=== PATIENT | male | born 1990 | race African-American/Black ===

== ENCOUNTER 2016-11-07 11:12 | Emergency (ER) | payer OTHER ==
[~2016-11-07 11:12] MED LIST: ALBU17IN2 INH; ATARAX OR; AUGM875T27 PO; CONC18TA OR; CONC54TA4 PO; LISI-542 PO; METO25TAB PO; MYLI40DR PO; No Historical Meds; OXYC-517 PO; SERO400T3 OR; TRAZ50TA OR; XANA1TAB2 OR; XANA1TAB2 PO
[2016-11-07] MEDS ORDERED: guaiFENesin SYRUP 200 MG/10 ML UDC As Ordered ONE (11:34)
[2016-11-07] MEDS ORDERED: ALBUTEROL SULFATE 2.5 MG/0.5 ML INH NEB SOLN As Ordered ONE (11:39)
--- NOTE | 2016-11-07 11:53 | REP ---
Chest x-ray: Two views. History: Cough. Congestion. . Comparison study: No comparison . Findings: The lungs are well inflated and free of infiltrate. The pleural angles are sharp. The heart size is normal. Pulmonary vasculature is not increased. No significant bony abnormality is seen. Impression: Negative chest x-ray. Signed by Ronald Cazares MD 11/07/2016 11:45 A
--- NOTE | 2016-11-07 12:35 | EDDOCDS ---
Physician Documentation [facility] Name: Fan Gilliam Age: 25 yrs Sex: Male : 1990 Arrival Date: 11/07/2016 Time: 11:12 Bed PR Private MD: No Pcp Disposition: 11/07/16 12:21 Discharged to Home/Self Care. Impression: Shortness of breath, Cough, Acute upper respiratory infection, unspecified. - Condition is Stable. - Discharge Instructions: Shortness of Breath, Upper Respiratory Infection, Adult, Cough, Adult. - Prescriptions for Prednisone 20 mg Oral Tablet - take 2 tablet by ORAL route once daily for 5 days; 10 tablet. benzonatate 200 mg Oral Capsule - take 1 capsule by ORAL route 3 times per day As needed DO NOT CHEW; 30 capsule. - Medication Reconciliation, Local Pharmacy Hours, Work Release Form - 2 day form. - Follow up: Emergency Department; When: As needed; Reason: Worsening of conditions. [facility]; When: Call to arrange an appointment; Reason: Recheck today's complaints, Continuance of care, To establish care. - Problem is new. - Symptoms have improved. Historical: - Allergies: Adderall XR (Anaphylaxis); Ativan (Anaphylaxis); Celexa (Anaphylaxis); diclofenac sodium (Anaphylaxis); Geodan (Anaphylaxis); Ibuprofen (Anaphylaxis); Risperdal (Anaphylaxis); thorazine (Anaphylaxis); - Home Meds: 1. lisinopril 5 mg Oral tab 1 tab once daily - PMHx: Bipolar disorder; Hypertension; - PSHx: Tonsillectomy; Appendectomy; mesenteric artery repair; - Social history: Smoking status: Patient uses tobacco products, current some day smoker. No barriers to communication noted, The patient speaks fluent S[place]ome[place], Speaks appropriately for age. - Family history: Not pertinent. - : The pt / caregiver states he / she is not on anticoagulants. Home medication list is obtained from the patient. - Exposure Risk Screening:: None identified. Vital Signs: 11/07 11:14 BP 113 / 84; Pulse 100; Resp 20; Temp 98.4; Pulse Ox 100% ; Weight 99.79 kg / 220 lbs; elp Height 5 ft. 10 in. (177.80 cm); Pain 10/10; 12:28 BP 110 / 76; Pulse 98; Resp 18; Temp 97.6(O); Pulse Ox 98% on R/A; Pain 0/10; ct3 11:14 Body Mass Index 31.57 (99.79 kg, 177.80 cm) elp MDM: 11:31 guaiFENesin Liquid 200 mg PO once ordered. dt4 11:32 Albuterol 2.5 mg Nebulizer once ordered. dt4 11:32 Call Respiratory ordered. dt4 11:32 Chest, 2 View (pa\E\lat) Ordered. EDMS 11:33 Call Respiratory complete. ck1 Administered Medications: 11:37 Drug: guaiFENesin 200 mg [guaifenesin 100 mg/5 mL oral liquid (10 mL)] Route: PO; kcs 11:43 Drug: Albuterol 2.5 mg [albuterol sulfate 2.5 mg/0.5 mL solution for nebulization (0.5 js11 mL)] Route: Nebulizer; Signatures: Dispatcher [employer] EDMS Davina Mckeon RN RN ck1 Tosha Ardon RN RN jo3 Pearl Wilson, PAMounaC PA-C dt4 Felisha Edge RN kcs Fan Brand js11 MTDD
--- NOTE | 2016-11-07 12:36 | EDDOCDS ---
Nurse's Notes [facility] Name: Fan Gilliam Age: 25 yrs Sex: Male : 1990 Arrival Date: 11/07/2016 Time: 11:12 Bed PR Private MD: No Pcp Diagnosis: Shortness of breath;Cough;Acute upper respiratory infection, unspecified Presentation: 11/07 11:22 Presenting complaint: Patient states: Productive cough congestion and VINSON for 2 weeks. jo3 "I think I may have pneumonia". Adult Sepsis Screening: The patient does not have new or worsening altered mentation. Patient's respiratory rate is less than 22. Systolic blood pressure is greater than 100. Patient has a qSOFA score of 0- Negative Sepsis Screen. Suicide/Homicide risk assessment- the patient denies having any suicidal and/or homicidal ideations and does not present with any other emotional, behavioral or mental health complaints. 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 Transition of care: patient was not received from another setting of care. 11:22 Acuity: ELIGIO Level 4 jo3 11:22 Method Of Arrival: Walkin/Carried/Asstd jo3 Triage Assessment: 11:23 General: Appears in no apparent distress, Behavior is appropriate for age, cooperative. jo3 HIV screening NA for this visit Offered previously. Neurological: Level of Consciousness is awake, alert, Oriented to person, place, time. Respiratory: Airway is patent Respiratory effort is even, unlabored. Historical: - Allergies: Adderall XR (Anaphylaxis); Ativan (Anaphylaxis); Celexa (Anaphylaxis); diclofenac sodium (Anaphylaxis); Geodan (Anaphylaxis); Ibuprofen (Anaphylaxis); Risperdal (Anaphylaxis); thorazine (Anaphylaxis); - Home Meds: 1. lisinopril 5 mg Oral tab 1 tab once daily - PMHx: Bipolar disorder; Hypertension; - PSHx: Tonsillectomy; Appendectomy; mesenteric artery repair; - Social history: Smoking status: Patient uses tobacco products, current some day smoker. No barriers to communication noted, The patient speaks fluent Hebrew, Speaks appropriately for age. - Family history: Not pertinent. - : The pt / caregiver states he / she is not on anticoagulants. Home medication list is obtained from the patient. - Exposure Risk Screening:: None identified. Screenin:33 Screening information is obtained from the patient. Fall risk: No risks identified. ck1 Assistance ADL's: requires no assistance with activities of daily living. Abuse/DV Screen: The patient / caregiver reports he/she is: not in a situation that causes fear, pain or injury. Nutritional screening: No deficits noted. Advance Directives: Currently, there is no health care proxy. home support is adequate. Assessment: 12:12 Reassessment: Patient states it is hard for him to breathe - no dyspnea noted - talking kcs in full sentences - no drooling, no stridor.. 12:34 General: Appears in no apparent distress, comfortable, Behavior is appropriate for age, ck1 cooperative. Pain: Denies pain. Neurological: Level of Consciousness is awake, alert, obeys commands, Oriented to person, place, time. Respiratory: Respiratory effort is unlabored, Respiratory pattern is regular, symmetrical. GI: No deficits noted. Derm: Skin is intact, is healthy with good turgor, Skin is pink, warm & dry. Musculoskeletal: Circulation, motion, and sensation intact Range of motion intact in all extremities. Vital Signs: 11:14 BP 113 / 84; Pulse 100; Resp 20; Temp 98.4; Pulse Ox 100% ; Weight 99.79 kg; Height 5 elp ft. 10 in. (177.80 cm); Pain 10/10; 12:28 BP 110 / 76; Pulse 98; Resp 18; Temp 97.6(O); Pulse Ox 98% on R/A; Pain 0/10; ct3 11:14 Body Mass Index 31.57 (99.79 kg, 177.80 cm) [facility] Vitals: 11:14 Log In Time: November 07, 2016 at 11:10. [facility] ED Course: 11:13 Patient visited by Saloni Ku PCA. elp 11:13 No Pcp is Private Physician. elp 11:13 Patient moved to Waiting elp 11:15 Patient visited by Saloni Ku PCA. elp 11:15 Patient moved to Pre RCE elp 11:23 Triage Initiated jo3 11:24 Patient visited by Tosha Ardon RN. jo3 11:24 [facility] dt4 11:24 Morena Link MD is Attending Physician. dt4 11:24 Patient visited by Pearl Wilson PA-C. dt4 11:24 Patient moved to Triage 2 jo3 11:33 Patient moved to PR2 / 26 kcs 12:03 Patient visited by Davina Mckeon RN. ck1 12:21 [facility] is Referral Physician. dt4 12:29 Patient visited by Desire Banuelos PCA. ct3 12:31 Chest, 2 View (pa\\E\\lat) Returned. EDMS 12:34 The patient / caregiver is instructed regarding the plan of care and ED course. ck1 12:34 No IV's were initiated during this patient's visit. No procedures done that require ck1 assistance. Administered Medications: 11:37 Drug: guaiFENesin 200 mg [guaifenesin 100 mg/5 mL oral liquid (10 mL)] Route: PO; kcs 11:43 Drug: Albuterol 2.5 mg [albuterol sulfate 2.5 mg/0.5 mL solution for nebulization (0.5 js11 mL)] Route: Nebulizer; RT: 11:43 Initial Med Neb Given as ordered Patient was instructed and evaluated on procedure js11 Patient tolerated procedure well without adverse effect. Oxygen is room air. Respiratory: Breath sounds are clear bilaterally. Breath sounds are diminished bilaterally. 11:53 Respiratory: Breath sounds with wheezes bilaterally. at expiration. js11 Order Results: Radiology Order: Chest, 2 View (pa\\E\\lat) Test: Chest, 2 View (pa\\E\\lat) REASON FOR EXAMINATION: Cough; Chest x-ray: Two views.; ; History: Cough. Congestion. .; ; Comparison study: No comparison .; ; Findings: The lungs are well inflated and free of infiltrate. The pleural; angles are sharp. The heart size is normal. Pulmonary vasculature is not; increased. No significant bony abnormality is seen.; ; Impression:; ; Negative chest x-ray.; ; ; Signed by; Ronald Cazares MD 11/07/2016 11:45 A; Outcome: 12:21 Discharge ordered by Provider. dt4 12:33 Discharge Assessment: Patient awake, alert and oriented x 3. No cognitive and/or ck1 functional deficits noted. Patient verbalized understanding of disposition instructions. patient administered narcotics - no. The following High Risk Discharge criteria are identified: None. Discharged to home ambulatory. Condition: stable. Discharge instructions given to patient, Instructed on discharge instructions, follow up and referral plans. medication usage, Demonstrated understanding of instructions, medications, Pt was receptive of discharge instructions/ teaching. Prescriptions given X 2. No special radiology studies were completed. Property :Personal belongings accompany Pt. 12:33 Work note provided to patient. ck1 12:34 Patient left the ED. ck1 Signatures: Dispatcher [employer] EDFelisha Wilkins RN RN Davina Badillo RN RN ck1 Tosha Ardon RN RN jo3 Desire Banuelos, AUTOMATION QA LEAD AUTOMATION QA LEAD ct3 Fan Brand js11 Saloni Ku, AUTOMATION QA LEAD AUTOMATION QA LEAD elp Pearl Wilson PA-C PA-C dt4 MTDD
--- NOTE | 2016-11-09 13:35 | EDDOCDS ---
Nurse's Notes [facility] Name: Fan Gilliam Age: 25 yrs Sex: Male : 1990 Arrival Date: 11/07/2016 Time: 11:12 Bed PR Private MD: No Pcp Diagnosis: Shortness of breath;Cough;Acute upper respiratory infection, unspecified Presentation: 11/07 11:22 Presenting complaint: Patient states: Productive cough congestion and VINSON for 2 weeks. jo3 "I think I may have pneumonia". Adult Sepsis Screening: The patient does not have new or worsening altered mentation. Patient's respiratory rate is less than 22. Systolic blood pressure is greater than 100. Patient has a qSOFA score of 0- Negative Sepsis Screen. Suicide/Homicide risk assessment- the patient denies having any suicidal and/or homicidal ideations and does not present with any other emotional, behavioral or mental health complaints. Status: Patient is not a dietary service aide or dependent. Transition of care: patient was not received from another setting of care. 11:22 Acuity: ELIGIO Level 4 jo3 11:22 Method Of Arrival: Walkin/Carried/Asstd jo3 Triage Assessment: 11:23 General: Appears in no apparent distress, Behavior is appropriate for age, cooperative. jo3 HIV screening NA for this visit Offered previously. Neurological: Level of Consciousness is awake, alert, Oriented to person, place, time. Respiratory: Airway is patent Respiratory effort is even, unlabored. Historical: - Allergies: Adderall XR (Anaphylaxis); Ativan (Anaphylaxis); Celexa (Anaphylaxis); diclofenac sodium (Anaphylaxis); Geodan (Anaphylaxis); Ibuprofen (Anaphylaxis); Risperdal (Anaphylaxis); thorazine (Anaphylaxis); - Home Meds: 1. lisinopril 5 mg Oral tab 1 tab once daily - PMHx: Bipolar disorder; Hypertension; - PSHx: Tonsillectomy; Appendectomy; mesenteric artery repair; - Social history: Smoking status: Patient uses tobacco products, current some day smoker. No barriers to communication noted, The patient speaks fluent Khmer, Speaks appropriately for age. - Family history: Not pertinent. - : The pt / caregiver states he / she is not on anticoagulants. Home medication list is obtained from the patient. - Exposure Risk Screening:: None identified. Screenin:33 Screening information is obtained from the patient. Fall risk: No risks identified. ck1 Assistance ADL's: requires no assistance with activities of daily living. Abuse/DV Screen: The patient / caregiver reports he/she is: not in a situation that causes fear, pain or injury. Nutritional screening: No deficits noted. Advance Directives: Currently, there is no health care proxy. home support is adequate. Assessment: 12:12 Reassessment: Patient states it is hard for him to breathe - no dyspnea noted - talking kcs in full sentences - no drooling, no stridor.. 12:34 General: Appears in no apparent distress, comfortable, Behavior is appropriate for age, ck1 cooperative. Pain: Denies pain. Neurological: Level of Consciousness is awake, alert, obeys commands, Oriented to person, place, time. Respiratory: Respiratory effort is unlabored, Respiratory pattern is regular, symmetrical. GI: No deficits noted. Derm: Skin is intact, is healthy with good turgor, Skin is pink, warm & dry. Musculoskeletal: Circulation, motion, and sensation intact Range of motion intact in all extremities. Vital Signs: 11:14 BP 113 / 84; Pulse 100; Resp 20; Temp 98.4; Pulse Ox 100% ; Weight 99.79 kg; Height 5 elp ft. 10 in. (177.80 cm); Pain 10/10; 12:28 BP 110 / 76; Pulse 98; Resp 18; Temp 97.6(O); Pulse Ox 98% on R/A; Pain 0/10; ct3 11:14 Body Mass Index 31.57 (99.79 kg, 177.80 cm) [facility] Vitals: 11:14 Log In Time: November 07, 2016 at 11:10. [facility] ED Course: 11:13 Patient visited by Saloni Ku PCA. elp 11:13 No Pcp is Private Physician. elp 11:13 Patient moved to Waiting elp 11:15 Patient visited by Saloni Ku PCA. elp 11:15 Patient moved to Pre RCE elp 11:23 Triage Initiated jo3 11:24 Patient visited by Tosha Ardon RN. jo3 11:24 [facility] dt4 11:24 Morena Link MD is Attending Physician. dt4 11:24 Patient visited by Pearl Wilson PA-C. dt4 11:24 Patient moved to Triage 2 jo3 11:33 Patient moved to PR2 / 26 kcs 12:03 Patient visited by Davina Mckeon RN. ck1 12:21 [facility] is Referral Physician. dt4 12:29 Patient visited by Desire Banuelos PCA. ct3 12:31 Chest, 2 View (pa\\E\\lat) Returned. EDMS 12:34 The patient / caregiver is instructed regarding the plan of care and ED course. ck1 12:34 No IV's were initiated during this patient's visit. No procedures done that require ck1 assistance. 13:07 [facility] Payment Agreement was scanned into [employer] and attached to record. mm15 02 09:23 T-Sheet-- Draft Copy was scanned into [employer] and attached to record. gb Administered Medications: 11/07 11:37 Drug: guaiFENesin 200 mg [guaifenesin 100 mg/5 mL oral liquid (10 mL)] Route: PO; kcs 11:43 Drug: Albuterol 2.5 mg [albuterol sulfate 2.5 mg/0.5 mL solution for nebulization (0.5 js11 mL)] Route: Nebulizer; RT: 11:43 Initial Med Neb Given as ordered Patient was instructed and evaluated on procedure js11 Patient tolerated procedure well without adverse effect. Oxygen is room air. Respiratory: Breath sounds are clear bilaterally. Breath sounds are diminished bilaterally. 11:53 Respiratory: Breath sounds with wheezes bilaterally. at expiration. js11 Order Results: Radiology Order: Chest, 2 View (pa\\E\\lat) Test: Chest, 2 View (pa\\E\\lat) REASON FOR EXAMINATION: Cough; Chest x-ray: Two views.; ; History: Cough. Congestion. .; ; Comparison study: No comparison .; ; Findings: The lungs are well inflated and free of infiltrate. The pleural; angles are sharp. The heart size is normal. Pulmonary vasculature is not; increased. No significant bony abnormality is seen.; ; Impression:; ; Negative chest x-ray.; ; ; Signed by; Ronald Cazares MD 11/07/2016 11:45 A; Outcome: 12:21 Discharge ordered by Provider. dt4 12:33 Discharge Assessment: Patient awake, alert and oriented x 3. No cognitive and/or ck1 functional deficits noted. Patient verbalized understanding of disposition instructions. patient administered narcotics - no. The following High Risk Discharge criteria are identified: None. Discharged to home ambulatory. Condition: stable. Discharge instructions given to patient, Instructed on discharge instructions, follow up and referral plans. medication usage, Demonstrated understanding of instructions, medications, Pt was receptive of discharge instructions/ teaching. Prescriptions given X 2. No special radiology studies were completed. Property :Personal belongings accompany Pt. 12:33 Work note provided to patient. ck1 12:34 Patient left the ED. ck1 Signatures: Dispatcher [employer] EDMS Felisha Edge, RN RN Anushka Pop, Margarito Reg Davina Tong RN RN ck1 Tosha Ardon RN RN jo3 Desire Banuelos, DUPLICATING MACHINE MECHANIC DUPLICATING MACHINE MECHANIC ct3 Fan Brand js11 Teodora Campos mm15 Saloni Ku, DUPLICATING MACHINE MECHANIC DUPLICATING MACHINE MECHANIC elp Pearl Wilson, PA-C PA-C dt4 Chart Complete MTDD
--- NOTE | 2016-11-09 13:35 | EDDOCDS ---
Physician Documentation [facility] Name: Fan Gilliam Age: 25 yrs Sex: Male : 1990 Arrival Date: 11/07/2016 Time: 11:12 Bed PR Private MD: No Pcp Disposition: 11/07/16 12:21 Discharged to Home/Self Care. Impression: Shortness of breath, Cough, Acute upper respiratory infection, unspecified. - Condition is Stable. - Discharge Instructions: Shortness of Breath, Upper Respiratory Infection, Adult, Cough, Adult. - Prescriptions for Prednisone 20 mg Oral Tablet - take 2 tablet by ORAL route once daily for 5 days; 10 tablet. benzonatate 200 mg Oral Capsule - take 1 capsule by ORAL route 3 times per day As needed DO NOT CHEW; 30 capsule. - Medication Reconciliation, Local Pharmacy Hours, Work Release Form - 2 day form. - Follow up: Emergency Department; When: As needed; Reason: Worsening of conditions. Follow [facility]: [facility]; When: Call to arrange an appointment; Reason: Recheck today's complaints, Continuance of care, To establish care. - Problem is new. - Symptoms have improved. Historical: - Allergies: Adderall XR (Anaphylaxis); Ativan (Anaphylaxis); Celexa (Anaphylaxis); diclofenac sodium (Anaphylaxis); Geodan (Anaphylaxis); Ibuprofen (Anaphylaxis); Risperdal (Anaphylaxis); thorazine (Anaphylaxis); - Home Meds: 1. lisinopril 5 mg Oral tab 1 tab once daily - PMHx: Bipolar disorder; Hypertension; - PSHx: Tonsillectomy; Appendectomy; mesenteric artery repair; - Social history: Smoking status: Patient uses tobacco products, current some day smoker. No barriers to communication noted, The patient speaks fluent Tristanian, Speaks appropriately for age. - Family history: Not pertinent. - : The pt / caregiver states he / she is not on anticoagulants. Home medication list is obtained from the patient. - Exposure Risk Screening:: None identified. Vital Signs: 11/07 11:14 BP 113 / 84; Pulse 100; Resp 20; Temp 98.4; Pulse Ox 100% ; Weight 99.79 kg / 220 lbs; elp Height 5 ft. 10 in. (177.80 cm); Pain 10/10; 12:28 BP 110 / 76; Pulse 98; Resp 18; Temp 97.6(O); Pulse Ox 98% on R/A; Pain 0/10; ct3 11:14 Body Mass Index 31.57 (99.79 kg, 177.80 cm) elp MDM: 11:31 guaiFENesin Liquid 200 mg PO once ordered. dt4 11:32 Albuterol 2.5 mg Nebulizer once ordered. dt4 11:32 Call Respiratory ordered. dt4 11:32 Chest, 2 View (pa\E\lat) Ordered. EDMS 11:33 Call Respiratory complete. ck1 13:06 Financial registration complete. mm15 13: [facility] Payment Agreement was scanned into [employer] and attached to record. mm15 11/08 09:23 T-Sheet-- Draft Copy was scanned into [employer] and attached to record. gb Administered Medications: 11/07 11:37 Drug: guaiFENesin 200 mg [guaifenesin 100 mg/5 mL oral liquid (10 mL)] Route: PO; kcs 11:43 Drug: Albuterol 2.5 mg [albuterol sulfate 2.5 mg/0.5 mL solution for nebulization (0.5 js11 mL)] Route: Nebulizer; Signatures: Dispatcher [employer] EDMS Anushka Turner, Reg Reg gb Davina Mckeon RN RN ck1 Tosha Ardon RN RN jo3 Teodora Campos mm15 Pearl Wilson, PA-C PA-C dt4 Felisha Edge RN, Jordan js11 The chart was reviewed and I authenticate all verbal orders and agree with the evaluation and treatment provided.Attachments: : [facility] Payment Agreement mm15 11/08 09:23 T-Sheet-- Draft Copy gb Chart Complete MTDD
--- NOTE | 2016-11-09 13:35 | EDDOCDS ---
Physician Documentation [facility] Name: Fan Gilliam Age: 25 yrs Sex: Male : 1990 Arrival Date: 11/07/2016 Time: 11:12 Bed PR Private MD: No Pcp Disposition: 11/07/16 12:21 Discharged to Home/Self Care. Impression: Shortness of breath, Cough, Acute upper respiratory infection, unspecified. - Condition is Stable. - Discharge Instructions: Shortness of Breath, Upper Respiratory Infection, Adult, Cough, Adult. - Prescriptions for Prednisone 20 mg Oral Tablet - take 2 tablet by ORAL route once daily for 5 days; 10 tablet. benzonatate 200 mg Oral Capsule - take 1 capsule by ORAL route 3 times per day As needed DO NOT CHEW; 30 capsule. - Medication Reconciliation, Local Pharmacy Hours, Work Release Form - 2 day form. - Follow up: Emergency Department; When: As needed; Reason: Worsening of conditions. Follow up: [facility]; When: Call to arrange an appointment; Reason: Recheck today's complaints, Continuance of care, To establish care. - Problem is new. - Symptoms have improved. Historical: - Allergies: Adderall XR (Anaphylaxis); Ativan (Anaphylaxis); Celexa (Anaphylaxis); diclofenac sodium (Anaphylaxis); Geodan (Anaphylaxis); Ibuprofen (Anaphylaxis); Risperdal (Anaphylaxis); thorazine (Anaphylaxis); - Home Meds: 1. lisinopril 5 mg Oral tab 1 tab once daily - PMHx: Bipolar disorder; Hypertension; - PSHx: Tonsillectomy; Appendectomy; mesenteric artery repair; - Social history: Smoking status: Patient uses tobacco products, current some day smoker. No barriers to communication noted, The patient speaks fluent Australian, Speaks appropriately for age. - Family history: Not pertinent. - : The pt / caregiver states he / she is not on anticoagulants. Home medication list is obtained from the patient. - Exposure Risk Screening:: None identified. Vital Signs: 11/07 11:14 BP 113 / 84; Pulse 100; Resp 20; Temp 98.4; Pulse Ox 100% ; Weight 99.79 kg / 220 lbs; elp Height 5 ft. 10 in. (177.80 cm); Pain 10/10; 12:28 BP 110 / 76; Pulse 98; Resp 18; Temp 97.6(O); Pulse Ox 98% on R/A; Pain 0/10; ct3 11:14 Body Mass Index 31.57 (99.79 kg, 177.80 cm) elp MDM: 11:31 guaiFENesin Liquid 200 mg PO once ordered. dt4 11:32 Albuterol 2.5 mg Nebulizer once ordered. dt4 11:32 Call Respiratory ordered. dt4 11:32 Chest, 2 View (pa\E\lat) Ordered. EDMS 11:33 Call Respiratory complete. ck1 13:06 Financial registration complete. mm15 13: [facility] Payment Agreement was scanned into [employer] and attached to record. mm15 11/08 09:23 T-Sheet-- Draft Copy was scanned into [employer] and attached to record. gb Administered Medications: 11/07 11:37 Drug: guaiFENesin 200 mg [guaifenesin 100 mg/5 mL oral liquid (10 mL)] Route: PO; kcs 11:43 Drug: Albuterol 2.5 mg [albuterol sulfate 2.5 mg/0.5 mL solution for nebulization (0.5 js11 mL)] Route: Nebulizer; Signatures: Dispatcher [employer] EDMS Anushka Turner, Reg Reg gb Davina Mckeon RN RN ck1 Tosha Ardon RN RN jo3 Teodora Campos mm15 Pearl Wilson, PA-C PA-C dt4 Felisha Edge RN, Jordan js11 The chart was reviewed and I authenticate all verbal orders and agree with the evaluation and treatment provided.Attachments: : [facility] Payment Agreement mm15 11/08 09:23 T-Sheet-- Draft Copy gb Chart Complete MTDD
== END 2016-11-07 12:34 | disposition home or self-care (01) ==
LOC: M ED 11:12
DX: J06.9 Acute upper respiratory infection, unspecified (principal); R06.02 Shortness of breath; R05 Cough; I10 Essential (primary) hypertension; F31.9 Bipolar disorder, unspecified; Z90.89 Acquired absence of other organs; F17.200 Nicotine dependence, unspecified, uncomplicated; Z79.899 Other long term (current) drug therapy; Z88.6 Allergy status to analgesic agent; Z88.5 Allergy status to narcotic agent; Z88.8 Allergy status to other drugs, medicaments and biological substances

== ENCOUNTER 2016-11-19 11:40 | Emergency (ER) | payer OTHER ==
--- NOTE | 2016-11-19 12:47 | EDDOCDS ---
Physician Documentation [facility] Name: Fan Gilliam Age: 25 yrs Sex: Male : 1990 Arrival Date: 11/19/2016 Time: 11:40 Bed Triage 1 Private MD: No Pcp Disposition: 11/19/16 12:34 Discharged to Home/Self Care. Impression: Influenza due to unidentified influenza virus. - Condition is Stable. - Discharge Instructions: Influenza Adult. - Prescriptions for Tamiflu 75 mg Oral Capsule - take 1 capsule by ORAL route every 12 hours for 5 days; 10 capsule. - Medication Reconciliation form. - [facility]; When: Call to arrange an appointment; Reason: To establish care. - Problem is new. - Symptoms are unchanged. Historical: - Allergies: Adderall XR (Anaphylaxis); Ativan (Anaphylaxis); Celexa (Anaphylaxis); diclofenac sodium (Anaphylaxis); Geodan (Anaphylaxis); Ibuprofen (Anaphylaxis); Risperdal (Anaphylaxis); thorazine (Anaphylaxis); - PMHx: Bipolar disorder; Hypertension; - PSHx: Tonsillectomy; Appendectomy; mesenteric artery repair; - Social history: Smoking status: Patient uses tobacco products, current every day smoker. No barriers to communication noted, The patient speaks fluent Belizean, Speaks appropriately for age. - Family history: Not pertinent. - : The pt / caregiver states he / she is not on anticoagulants. Home medication list is obtained from the patient. - Exposure Risk Screening:: None identified. Vital Signs: 11/19 11:42 BP 115 / 74; Pulse 116; Resp 18; Temp 101.9(O); Pulse Ox 98% on R/A; Weight 108.86 kg / ct3 240 lbs (R); Height 5 ft. 10 in. (177.80 cm) (R); Pain 10/10; 11:42 Body Mass Index 34.44 (108.86 kg, 177.80 cm) ct3 MDM: 12:34 Fluid Challenge ordered. cc10 Administered Medications: 12:37 CANCELLED (Other Intervention Used): Ibuprofen 800 mg PO once cc10 Signatures: Raquel Danielle RN RN srm Katheryn Newton RN RN kr3 Jones White, PAMounaC PA-C cc10 The chart was reviewed and I authenticate all verbal orders and agree with the evaluation and treatment provided.Corrections: (The following items were deleted from the chart) 12:37 12:34 Ibuprofen 800 mg PO once ordered. cc10 cc10 MTDD
--- NOTE | 2016-11-19 12:47 | EDDOCDS ---
Nurse's Notes [facility] Name: Fan Gilliam Age: 25 yrs Sex: Male : 1990 Arrival Date: 11/19/2016 Time: 11:40 Bed Triage 1 Private MD: No Pcp Diagnosis: Influenza due to unidentified influenza virus Presentation: 11/19 11:44 Presenting complaint: Patient states: fever, freezing and can barely- symptoms for 1 srm day. tylenol 325 mg x4 tabs at 0600 . Presenting complaint: Patient states: diarrhea- exposure to flu. Adult Sepsis Screening: The patient does not have new or worsening altered mentation. Patient's respiratory rate is less than 22. Systolic blood pressure is greater than 100. Patient has a qSOFA score of 0- Negative Sepsis Screen. Suicide/Homicide risk assessment- the patient denies having any suicidal and/or homicidal ideations and does not present with any other emotional, behavioral or mental health complaints. Status: Patient is not a room service associate or dependent. Transition of care: patient was not received from another setting of care. 11:44 Acuity: ELIGIO Level 4 [facility] 11:44 Method Of Arrival: Walkin/Carried/Asstd srm Triage Assessment: 11:46 General: Appears in no apparent distress, Behavior is appropriate for age, cooperative. srm Pain: Pain currently is 7 out of 10 on a pain scale. HIV screening NA for this visit Offered previously. Historical: - Allergies: Adderall XR (Anaphylaxis); Ativan (Anaphylaxis); Celexa (Anaphylaxis); diclofenac sodium (Anaphylaxis); Geodan (Anaphylaxis); Ibuprofen (Anaphylaxis); Risperdal (Anaphylaxis); thorazine (Anaphylaxis); - PMHx: Bipolar disorder; Hypertension; - PSHx: Tonsillectomy; Appendectomy; mesenteric artery repair; - Social history: Smoking status: Patient uses tobacco products, current every day smoker. No barriers to communication noted, The patient speaks fluent Malay, Speaks appropriately for age. - Family history: Not pertinent. - : The pt / caregiver states he / she is not on anticoagulants. Home medication list is obtained from the patient. - Exposure Risk Screening:: None identified. Screenin:43 Infection Control. ct3 12:45 Screening information is obtained from the patient. Fall risk: No risks identified. kr3 Assistance ADL's: requires no assistance with activities of daily living. Abuse/DV Screen: The patient / caregiver reports he/she is: not in a situation that causes fear, pain or injury. Nutritional screening: No deficits noted. Advance Directives: Currently, there is no health care proxy. home support is adequate. Assessment: 12:46 Reassessment: Patient appears in no apparent distress at this time. General: Reports kr3 feeling ill for. Vital Signs: 11:42 BP 115 / 74; Pulse 116; Resp 18; Temp 101.9(O); Pulse Ox 98% on R/A; Weight 108.86 kg ct3 (R); Height 5 ft. 10 in. (177.80 cm) (R); Pain 10/10; 11:42 Body Mass Index 34.44 (108.86 kg, 177.80 cm) ct3 Vitals: 11:42 Log In Time: November 19, 2016 at 11:40. ct3 ED Course: 11:41 Patient visited by Desire Banuelos PCA. ct3 11:41 No Pcp is Private Physician. ct3 11:41 Patient moved to Waiting ct3 11:42 Patient moved to Pre RCE ct3 11:46 Triage Initiated srm 12:08 Patient moved to Triage 1 ar3 12:19 Jones [facility]. cc10 12:19 Abraham Barnett MD is Attending Physician. cc10 12:29 Patient visited by Jones White PA-C. cc10 12:29 Patient visited by Jones White PA-C. cc10 12:34 [facility] is Referral Physician. cc10 12:45 No IV's were initiated during this patient's visit. No procedures done that require kr3 assistance. 12:46 The patient / caregiver is instructed regarding the plan of care and ED course. Patient kr3 has correct armband on for positive identification. Administered Medications: 12:37 CANCELLED (Other Intervention Used): Ibuprofen 800 mg PO once cc10 Order Results: There are currently no results for this order. Outcome: 12:34 Discharge ordered by Provider. cc10 12:45 Discharge Assessment: patient administered narcotics - no. The following High Risk kr3 Discharge criteria are identified: None. Discharged to home ambulatory. Condition: stable. Discharge instructions given to patient, Instructed on discharge instructions, follow up and referral plans. medication usage, Demonstrated understanding of instructions, medications, Pt was receptive of discharge instructions/ teaching. Prescriptions given X 1. No special radiology studies were completed. Property sent home with patient. 12:46 Patient left the ED. kr3 Signatures: Raquel Danielle, RN RN srm Katheryn NewtonRN RN kr3 Emma Romeo, ANALYTICAL LAB TECHNICIAN ANALYTICAL LAB TECHNICIAN ar3 Desire Banuelos, ANALYTICAL LAB TECHNICIAN ANALYTICAL LAB TECHNICIAN ct3 Jones White, PA-C PA-C cc10 MTDD
--- NOTE | 2016-11-21 13:48 | EDDOCDS ---
Physician Documentation [facility] Name: Fan Gilliam Age: 25 yrs Sex: Male : 1990 Arrival Date: 11/19/2016 Time: 11:40 Bed Triage 1 Private MD: No Pcp Disposition: 11/19/16 12:34 Discharged to Home/Self Care. Impression: Influenza due to unidentified influenza virus. - Condition is Stable. - Discharge Instructions: Influenza Adult. - Prescriptions for Tamiflu 75 mg Oral Capsule - take 1 capsule by ORAL route every 12 hours for 5 days; 10 capsule. - Medication Reconciliation form. - Follow up: [facility]; When: Call to arrange an appointment; Reason: To establish care. - Problem is new. - Symptoms are unchanged. Historical: - Allergies: Adderall XR (Anaphylaxis); Ativan (Anaphylaxis); Celexa (Anaphylaxis); diclofenac sodium (Anaphylaxis); Geodan (Anaphylaxis); Ibuprofen (Anaphylaxis); Risperdal (Anaphylaxis); thorazine (Anaphylaxis); - PMHx: Bipolar disorder; Hypertension; - PSHx: Tonsillectomy; Appendectomy; mesenteric artery repair; - Social history: Smoking status: Patient uses tobacco products, current every day smoker. No barriers to communication noted, The patient speaks fluent Bangladeshi, Speaks appropriately for age. - Family history: Not pertinent. - : The pt / caregiver states he / she is not on anticoagulants. Home medication list is obtained from the patient. - Exposure Risk Screening:: None identified. Vital Signs: 11/19 11:42 BP 115 / 74; Pulse 116; Resp 18; Temp 101.9(O); Pulse Ox 98% on R/A; Weight 108.86 kg / ct3 240 lbs (R); Height 5 ft. 10 in. (177.80 cm) (R); Pain 10/10; 11:42 Body Mass Index 34.44 (108.86 kg, 177.80 cm) ct3 MDM: 12:34 Fluid Challenge ordered. cc10 12:47 [facility] Payment Agreement was scanned into [employer] and attached to record. jp5 12:48 Financial registration complete. jp5 15:32 T-Sheet-- Draft Copy was scanned into [employer] and attached to record. gb Administered Medications: 12:37 CANCELLED (Other Intervention Used): Ibuprofen 800 mg PO once cc10 Signatures: Raquel Danielle, RN RN srm Anushka Turner, Reg Reg gb Katheryn Newton,RN RN kr3 Jones White PA-C PAShelby cc10 Mely Bray jp5 The chart was reviewed and I authenticate all verbal orders and agree with the evaluation and treatment provided.Corrections: (The following items were deleted from the chart) 12:37 12:34 Ibuprofen 800 mg PO once ordered. cc10 cc10 Attachments: 12:47 [facility] Payment Agreement jp5 15:32 T-Sheet-- Draft Copy gb Chart Complete MTDD
--- NOTE | 2016-11-21 13:48 | EDDOCDS ---
Physician Documentation [facility] Name: Fan Gilliam Age: 25 yrs Sex: Male : 1990 Arrival Date: 11/19/2016 Time: 11:40 Bed Triage 1 Private MD: No Pcp Disposition: 11/19/16 12:34 Discharged to Home/Self Care. Impression: Influenza due to unidentified influenza virus. - Condition is Stable. - Discharge Instructions: Influenza Adult. - Prescriptions for Tamiflu 75 mg Oral Capsule - take 1 capsule by ORAL route every 12 hours for 5 days; 10 capsule. - Medication Reconciliation form. - Follow up: [facility]; When: Call to arrange an appointment; Reason: To establish care. - Problem is new. - Symptoms are unchanged. Historical: - Allergies: Adderall XR (Anaphylaxis); Ativan (Anaphylaxis); Celexa (Anaphylaxis); diclofenac sodium (Anaphylaxis); Geodan (Anaphylaxis); Ibuprofen (Anaphylaxis); Risperdal (Anaphylaxis); thorazine (Anaphylaxis); - PMHx: Bipolar disorder; Hypertension; - PSHx: Tonsillectomy; Appendectomy; mesenteric artery repair; - Social history: Smoking status: Patient uses tobacco products, current every day smoker. No barriers to communication noted, The patient speaks fluent Moldovan, Speaks appropriately for age. - Family history: Not pertinent. - : The pt / caregiver states he / she is not on anticoagulants. Home medication list is obtained from the patient. - Exposure Risk Screening:: None identified. Vital Signs: 11/19 11:42 BP 115 / 74; Pulse 116; Resp 18; Temp 101.9(O); Pulse Ox 98% on R/A; Weight 108.86 kg / ct3 240 lbs (R); Height 5 ft. 10 in. (177.80 cm) (R); Pain 10/10; 11:42 Body Mass Index 34.44 (108.86 kg, 177.80 cm) ct3 MDM: 12:34 Fluid Challenge ordered. cc10 12:47 [facility] Payment Agreement was scanned into [employer] and attached to record. jp5 12:48 Financial registration complete. jp5 15:32 T-Sheet-- Draft Copy was scanned into [employer] and attached to record. gb Administered Medications: 12:37 CANCELLED (Other Intervention Used): Ibuprofen 800 mg PO once cc10 Signatures: Raqule Danielle, RN RN srm Anushka Turner, Reg Reg gb Katheryn Newton,RN RN kr3 Jones White PA-C PAShelby cc10 Mely Bray jp5 The chart was reviewed and I authenticate all verbal orders and agree with the evaluation and treatment provided.Corrections: (The following items were deleted from the chart) 12:37 12:34 Ibuprofen 800 mg PO once ordered. cc10 cc10 Attachments: 12:47 [facility] Payment Agreement jp5 15:32 T-Sheet-- Draft Copy gb Chart Complete MTDD
--- NOTE | 2016-11-21 13:49 | EDDOCDS ---
Nurse's Notes [facility] Name: Fan Gilliam Age: 25 yrs Sex: Male : 1990 Arrival Date: 11/19/2016 Time: 11:40 Bed Triage 1 Private MD: No Pcp Diagnosis: Influenza due to unidentified influenza virus Presentation: 11/19 11:44 Presenting complaint: Patient states: fever, freezing and can barely- symptoms for 1 srm day. tylenol 325 mg x4 tabs at 0600 . Presenting complaint: Patient states: diarrhea- exposure to flu. Adult Sepsis Screening: The patient does not have new or worsening altered mentation. Patient's respiratory rate is less than 22. Systolic blood pressure is greater than 100. Patient has a qSOFA score of 0- Negative Sepsis Screen. Suicide/Homicide risk assessment- the patient denies having any suicidal and/or homicidal ideations and does not present with any other emotional, behavioral or mental health complaints. Status: Patient is not a healthcare customer service or dependent. Transition of care: patient was not received from another setting of care. 11:44 Acuity: ELIGIO Level 4 [facility] 11:44 Method Of Arrival: Walkin/Carried/Asstd srm Triage Assessment: 11:46 General: Appears in no apparent distress, Behavior is appropriate for age, cooperative. srm Pain: Pain currently is 7 out of 10 on a pain scale. HIV screening NA for this visit Offered previously. Historical: - Allergies: Adderall XR (Anaphylaxis); Ativan (Anaphylaxis); Celexa (Anaphylaxis); diclofenac sodium (Anaphylaxis); Geodan (Anaphylaxis); Ibuprofen (Anaphylaxis); Risperdal (Anaphylaxis); thorazine (Anaphylaxis); - PMHx: Bipolar disorder; Hypertension; - PSHx: Tonsillectomy; Appendectomy; mesenteric artery repair; - Social history: Smoking status: Patient uses tobacco products, current every day smoker. No barriers to communication noted, The patient speaks fluent Bulgarian, Speaks appropriately for age. - Family history: Not pertinent. - : The pt / caregiver states he / she is not on anticoagulants. Home medication list is obtained from the patient. - Exposure Risk Screening:: None identified. Screenin:43 Infection Control. ct3 12:45 Screening information is obtained from the patient. Fall risk: No risks identified. kr3 Assistance ADL's: requires no assistance with activities of daily living. Abuse/DV Screen: The patient / caregiver reports he/she is: not in a situation that causes fear, pain or injury. Nutritional screening: No deficits noted. Advance Directives: Currently, there is no health care proxy. home support is adequate. Assessment: 12:46 Reassessment: Patient appears in no apparent distress at this time. General: Reports kr3 feeling ill for. Vital Signs: 11:42 BP 115 / 74; Pulse 116; Resp 18; Temp 101.9(O); Pulse Ox 98% on R/A; Weight 108.86 kg ct3 (R); Height 5 ft. 10 in. (177.80 cm) (R); Pain 10/10; 11:42 Body Mass Index 34.44 (108.86 kg, 177.80 cm) ct3 Vitals: 11:42 Log In Time: November 19, 2016 at 11:40. ct3 ED Course: 11:41 Patient visited by Desire Banuelos PCA. ct3 11:41 No Pcp is Private Physician. ct3 11:41 Patient moved to Waiting ct3 11:42 Patient moved to Pre RCE ct3 11:46 Triage Initiated srm 12:08 Patient moved to Triage 1 ar3 12:19 Jones White PA-C is PHCP. cc10 12:19 Abraham Barnett MD is Attending Physician. cc10 12:29 Patient visited by Jones White PA-C. cc10 12:29 Patient visited by Jones White PA-C. cc10 12:34 [facility] is Referral Physician. cc10 12:45 No IV's were initiated during this patient's visit. No procedures done that require kr3 assistance. 12:46 The patient / caregiver is instructed regarding the plan of care and ED course. Patient kr3 has correct armband on for positive identification. 12:47 [facility] [place] Agreement was scanned into [employer] and attached to record. jp5 15:32 T-Sheet-- Draft Copy was scanned into [employer] and attached to record. gb Administered Medications: 12:37 CANCELLED (Other Intervention Used): Ibuprofen 800 mg PO once cc10 Order Results: There are currently no results for this order. Outcome: 12:34 Discharge ordered by Provider. cc10 12:45 Discharge Assessment: patient administered narcotics - no. The following High Risk kr3 Discharge criteria are identified: None. Discharged to home ambulatory. Condition: stable. Discharge instructions given to patient, Instructed on discharge instructions, follow up and referral plans. medication usage, Demonstrated understanding of instructions, medications, Pt was receptive of discharge instructions/ teaching. Prescriptions given X 1. No special radiology studies were completed. Property sent home with patient. 12:46 Patient left the ED. kr3 Signatures: Raquel Danielle, RN RN [facility] Anushka Turner, Reg Reg Katheryn Newton RN RN kr3 Emma Romeo, CREATIVE WRITING PROFESSOR CREATIVE WRITING PROFESSOR ar3 Desire Banuelos, CREATIVE WRITING PROFESSOR CREATIVE WRITING PROFESSOR ct3 Jones White PA-C PA-C cc10 Mely Bray jp5 Chart Complete MTDCastillo
== END 2016-11-19 12:46 | disposition home or self-care (01) ==
LOC: M ED 11:40
DX: J11.1 Influenza due to unidentified influenza virus with other respiratory manifestations (principal); I10 Essential (primary) hypertension; F31.9 Bipolar disorder, unspecified; Z88.8 Allergy status to other drugs, medicaments and biological substances

== ENCOUNTER 2016-12-28 01:07 | Emergency (ER) | payer OTHER | END 2016-12-28 01:30 | disposition left against medical advice (07) | LOC: M ED 01:23 | DX: M25.579 Pain in unspecified ankle and joints of unspecified foot (principal); Z53.21 Procedure and treatment not carried out due to patient leaving prior to being seen by health care provider ==

== ENCOUNTER 2017-01-01 17:19 | Emergency (ER) | payer OTHER ==
[~2017-01-01] VITALS: Ht 177.8 cm; Wt 112.5 kg
[2017-01-01 17:27] VITALS: BP 152/88
[2017-01-01] MEDS ORDERED: ZOFR20TA PO (17:38)
[2017-01-01] MEDS ORDERED: OSEL75CA PO (17:38)
[2017-01-01] MEDS ORDERED: ONDANSETRON 4MG/2ML VIAL (J2405) IV ONE (17:45)
[2017-01-01] MEDS ORDERED: NS 1,000 ML IV ONE ×2 (17:45)
[2017-01-01] MEDS ORDERED: MORPHINE 4 MG/ML 1ML SYRINGE IV ONE (18:30)
[2017-01-01 18:35] LABS: BASO % 0.7 % (0.0-1.0); EOS # 0.1 K/mm3 (0.0-0.50); EOS % 1.4 % (0.0-3.0); LARGE UNSTAINED CELL # 0.3 K/mm3 (0.0-0.4); LARGE UNSTAINED CELL % 4.4 % (0.0-4.0); LYMPH # 0.9 K/mm3 (1.5-6.5); LYMPH % 14.7 % (24.0-44.0); MEAN CORPUSCULAR HEMOGLOBIN 29.2 pg (27.0-33.0); MEAN CORPUSCULAR HGB CONC 34.1 g/dl (32.0-36.5); MEAN CORPUSCULAR VOLUME 85.5 fl (80.0-96.0); MONO # 1.1 K/mm3 (0.0-0.8); MONO % 17.5 % (0.0-5.0); NEUTROPHILS # 3.7 K/mm3 (1.8-7.7); NEUTROPHILS % 61.4 % (36.0-66.0); PLATELET COUNT, AUTOMATED 195 k/mm3 (150-450); RED CELL DISTRIBUTION WIDTH 12.9 % (11.5-14.5)
[2017-01-01 18:56] LABS: ALBUMIN 3.9 GM/DL (3.2-5.2); ALBUMIN/GLOBULIN RATIO 1.05 (1.00-1.93); ALKALINE PHOSPHATASE 73 U/L (45-117); ALT/SGPT 71 U/L (12-78); ANION GAP 5 MEQ/L (8-16); AST/SGOT 31 U/L (15-37); BILIRUBIN,DIRECT < 0.1 MG/DL (0.0-0.2); BILIRUBIN,TOTAL 0.2 MG/DL (0.2-1.0); BLOOD UREA NITROGEN 8 MG/DL (7-18); CALCIUM LEVEL 8.9 MG/DL (8.5-10.1); CARBON DIOXIDE LEVEL 31 MEQ/L (21-32); CHLORIDE LEVEL 104 MEQ/L (98-107); CREATININE FOR GFR 1.22 MG/DL (0.70-1.30); GLOMERULAR FILTRATION RATE > 60.0 (>60); GLUCOSE, FASTING 83 MG/DL (70-105); POTASSIUM SERUM 3.9 MEQ/L (3.5-5.1); SODIUM LEVEL 140 MEQ/L (136-145); TOTAL PROTEIN 7.6 GM/DL (6.4-8.2)
[2017-01-01] MEDS ORDERED: ISOVUE-370 76% 100ML VIAL (Q9967) As Ordered ONE (19:14)
--- NOTE | 2017-01-01 19:44 | REP ---
Clinical: Acute mid abdominal pain. Technique: Axial contrast enhanced images from the lung bases to the pubic symphysis using 100 ml Isovue 370 intravenous contrast material with coronal and sagittal re-formations. Comparison: 12/10/2015, 01/14/2016. Findings: The lung bases are clear. Visualized portions of the heart and pericardium are normal. Diffuse fatty infiltration to the liver is appreciated 1 cm hemangioma in the posterior segment right lobe. Spleen, pancreas, gallbladder, bilateral adrenal glands and kidneys are normal. The enteric system demonstrates area of anastomosis in the right upper quadrant which is of uncertain etiology but appears stable when compared to prior examinations. There is no evidence for bowel obstruction or acute inflammatory process. The patient is noted to be status post appendectomy. Pelvis demonstrates normal bladder and age appropriate prostate/seminal vesicles. No ascites. No free air. No intraperitoneal or retroperitoneal adenopathy. Abdominal aorta and vasculature appears normal. Musculoskeletal structures are intact. Impression: 1. Diffuse fatty infiltration to the liver should be correlated clinically and possibly related to patient's symptoms. 2. 1 cm hemangioma in the posterior segment right lobe of the liver stable compared to prior examinations. 3. Area of the enteric anastomosis in the right upper quadrant of uncertain etiology but stable in appearance and positioning when compared to prior examinations. 4. No free fluid, adenopathy, mass, or further acute abdominopelvic pathology. Signed by Bandar Ling MD 01/01/2017 07:35 P
[2017-01-01] MEDS ORDERED: METOCLOPRAMIDE INJ 10MG/2ML VIAL (J2765) IV ONE (20:00)
[2017-01-01] MEDS ORDERED: fentaNYL 100 MCG/2 ML INJECTION (J3010) IV ONE (20:00)
[2017-01-01] MEDS ORDERED: ZOFR4TAB3 PO (20:26)
--- NOTE | 2017-01-02 07:26 | ECGEPIP ---
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
== END 2017-01-01 21:12 | disposition home or self-care (01) ==
LOC: EDBD 17:19 → M ED 17:20
DX: K76.0 Fatty (change of) liver, not elsewhere classified (principal); D18.03 Hemangioma of intra-abdominal structures; R11.2 Nausea with vomiting, unspecified; R10.9 Unspecified abdominal pain; Z90.89 Acquired absence of other organs
CPT/HCPCS: 74177; 80048; 80076; 83605; 83690; 85025; 93005; 93041; 96374; 96375; 99284; J2405; J2765; J3010; Q9967

== ENCOUNTER 2017-01-03 00:25 | Emergency (ER) | payer OTHER ==
[~2017-01-03] VITALS: Ht 177.8 cm; Wt 112.5 kg
[~2017-01-03 00:25] MED LIST changes: +OSEL75CA PO; +ZOFR20TA PO; +ZOFR4TAB3 PO
[2017-01-03] MEDS ORDERED: NS 1,000 ML IV ONE (01:45)
[2017-01-03] MEDS ORDERED: METOCLOPRAMIDE INJ 10MG/2ML VIAL (J2765) IV ONE (01:45)
[2017-01-03] MEDS ORDERED: ACETAMINOPHEN 650 MG SUPP PR ONE (01:45)
[2017-01-03] MEDS ORDERED: ACETAMINOPHEN TAB 650MG DOSE (2X325MG) PO ONE (03:00)
[2017-01-03] MEDS ORDERED: REGL10TA6 PO (03:20)
[2017-01-03 03:29] VITALS: BP 168/86
--- NOTE | 2017-01-03 08:12 | REP ---
Clinical: Shortness of breath . Comparison: 11/07/2016 . Technique: PA and lateral. Findings: The mediastinum and cardiac silhouette are normal. The lung kelley are clear and without acute consolidation, effusion, or pneumothorax. The skeletal structures are intact and normal. Impression: 1. No acute cardiopulmonary process. Signed by Bandar Ling MD 01/03/2017 08:03 A
== END 2017-01-03 03:32 | disposition home or self-care (01) ==
LOC: M ED 01:05
DX: J10.1 Influenza due to other identified influenza virus with other respiratory manifestations (principal); Z79.899 Other long term (current) drug therapy; Z88.8 Allergy status to other drugs, medicaments and biological substances; F17.210 Nicotine dependence, cigarettes, uncomplicated
CPT/HCPCS: 36415; 71020; 80048; 85025; 96361; 96374; 99283; J2765

== ENCOUNTER → 2017-02-03 | Outpatient (CLI) | payer OTHER ==
[~2017-02-03] MED LIST changes: +REGL10TA6 PO
== END ==
LOC: M WUC 16:17
PROVIDERS: ATTEND Physician Assistant
DX: Z11.3 Encounter for screening for infections with a predominantly sexual mode of transmission (principal)

== ENCOUNTER 2017-02-20 17:39 | Emergency (ER) | payer OTHER ==
[~2017-02-20] VITALS: Ht 177.8 cm; Wt 99.8 kg
[2017-02-20] MEDS ORDERED: TYLE325T5 PO (18:03)
[2017-02-20] MEDS ORDERED: MORPHINE 4 MG/ML 1ML SYRINGE IM ONE (19:15)
[2017-02-20] MEDS ORDERED: METOCLOPRAMIDE INJ 10MG/2ML VIAL (J2765) IM ONE (19:15)
[2017-02-20] MEDS ORDERED: MORPHINE 10 MG/ML 1ML VIAL As Ordered ONE (19:20)
--- NOTE | 2017-02-20 19:40 | REPUSA ---
CLINICAL HISTORY: Headaches. TECHNIQUE: Multiple axial brain CT scan sections were obtained from base to vertex without contrast a dministration. COMMENTS: The study shows normal configuration of sella turcica. There are no intra or extra-axial collections. There is no mass effect or midline shift. There is no evidence of hematoma formation. No hydrocephal us is present. No abnormal calcifications are noted. No significant abnormalities are seen either in the posterior fossa or supratentorial compartment. The sinuses and mastoid air cells are patent. IMPRESSION: No evidence of acute intracranial pathology. Thank you for your kind referral of this patient.
[2017-02-20 19:59] VITALS: BP 141/72
[2017-02-20] MEDS ORDERED: REGL10TA6 PO (20:10)
== END 2017-02-20 20:25 | disposition home or self-care (01) ==
LOC: M ED 18:40
DX: R51 Headache (principal); J45.909 Unspecified asthma, uncomplicated; F41.9 Anxiety disorder, unspecified; F32.9 Major depressive disorder, single episode, unspecified; Z79.899 Other long term (current) drug therapy; Z88.8 Allergy status to other drugs, medicaments and biological substances
CPT/HCPCS: 70450; 96372; 99282; J2765

== ENCOUNTER 2017-02-23 09:06 | Emergency (ER) | payer OTHER ==
[~2017-02-23] VITALS: Ht 177.8 cm; Wt 108.0 kg
[~2017-02-23 09:06] MED LIST changes: +TYLE325T5 PO
[2017-02-23] MEDS: MORPHINE 4 MG/ML 1ML SYRINGE IV PRN ×2 (09:52→11:13)
[2017-02-23 10:00] LABS: BASO % 0.5 % (0.0-1.0); EOS # 0.2 K/mm3 (0.0-0.50); LARGE UNSTAINED CELL # 0.2 K/mm3 (0.0-0.4); LYMPH # 1.4 K/mm3 (1.5-6.5); LYMPH % 12.5 % (24.0-44.0); MEAN CORPUSCULAR HEMOGLOBIN 29.1 pg (27.0-33.0); MEAN CORPUSCULAR HGB CONC 33.7 g/dl (32.0-36.5); MEAN CORPUSCULAR VOLUME 86.4 fl (80.0-96.0); MONO # 0.7 K/mm3 (0.0-0.8); NEUTROPHILS # 7.4 K/mm3 (1.8-7.7); PLATELET COUNT, AUTOMATED 203 k/mm3 (150-450); RED CELL DISTRIBUTION WIDTH 13.3 % (11.5-14.5); WHITE BLOOD COUNT 9.7 K/mm3 (4.0-10.0)
[2017-02-23] MEDS ORDERED: GASTROGRAFIN SOLUTION 30ML (Q9963) PO ONE (10:15)
[2017-02-23 10:18] LABS: ALBUMIN 3.8 GM/DL (3.2-5.2); ALBUMIN/GLOBULIN RATIO 1.06 (1.00-1.93); ALKALINE PHOSPHATASE 63 U/L (45-117); ALT/SGPT 100 U/L (12-78); ANION GAP 6 MEQ/L (8-16); AST/SGOT 41 U/L (15-37); BILIRUBIN,DIRECT < 0.1 MG/DL (0.0-0.2); BILIRUBIN,TOTAL 0.4 MG/DL (0.2-1.0); BLOOD UREA NITROGEN 11 MG/DL (7-18); CALCIUM LEVEL 8.5 MG/DL (8.5-10.1); CARBON DIOXIDE LEVEL 28 MEQ/L (21-32); CHLORIDE LEVEL 105 MEQ/L (98-107); CREATININE FOR GFR 0.95 MG/DL (0.70-1.30); GLOMERULAR FILTRATION RATE > 60.0 (>60); GLUCOSE, FASTING 122 MG/DL (70-105); SODIUM LEVEL 139 MEQ/L (136-145); TOTAL PROTEIN 7.4 GM/DL (6.4-8.2)
[2017-02-23] MEDS ORDERED: ONDANSETRON 4MG/2ML VIAL (J2405) As Ordered ONE (10:42)
[2017-02-23] MEDS ORDERED: GASTROGRAFIN SOLUTION 30ML PO ONE (10:45)
[2017-02-23] MEDS ORDERED: ONDANSETRON 4MG/2ML VIAL (J2405) IV ONE (10:45)
[2017-02-23] MEDS ORDERED: ISOVUE-370 76% 100ML VIAL (Q9967) As Ordered ONE (11:22)
[2017-02-23] MEDS ORDERED: MORPHINE 4 MG/ML 1ML SYRINGE IV ONE (13:00)
--- NOTE | 2017-02-23 13:06 | REP ---
Clinical: Right lower quadrant pain. Technique: Axial contrast enhanced images from the lung bases to the pubic symphysis using oral and 100 ml Isovue 370 intravenous contrast material with coronal and sagittal re-formations. Comparison: 01/01/2017, 12/10/2015. Findings: Lung bases are clear. Visualized heart and pericardium normal. Diffuse fatty infiltration of the liver is appreciated with mall the pole hyperenhancing nodules paralleling aortic enhancement and similar to prior examination suggesting the possibility of multiple benign hemangiomas. However findings are not definitive or diagnostic and may warrant further investigation including pre and postcontrast MRI of the abdomen. Spleen, pancreas, gallbladder, bilateral adrenal glands and kidneys are normal. The enteric system is unchanged and without evidence for obstruction or acute inflammatory process. The enteric anastomosis in the right upper quadrant is again identified and unchanged possibly related to the given history of mesenteric artery syndrome. Pelvis demonstrates normal bladder and age appropriate prostate/seminal vesicles. No free air. No free fluid. No adenopathy. Vasculature appears normal. Surrounding musculoskeletal structures are intact. Impression: 1. Diffuse fatty infiltration to the liver with multiple round enhancing nodules measuring up to approximately 1.5 cm. Findings are nonspecific and differential diagnosis includes but is not limited to hemangiomas, adenomas, and areas of focal fatty sparing. Consider MRI with contrast for further investigation. 2. Stable appearance to the surgical anastomoses in the right upper quadrant. 3. No acute intra-abdominal or pelvic pathology otherwise appreciated. Signed by Bandar Ling MD 02/23/2017 12:56 P
[2017-02-23] MEDS ORDERED: PERC5TAB6 PO (13:39)
[2017-02-23] MEDS ORDERED: PROT1TAB2 PO (13:39)
[2017-02-23] MEDS ORDERED: SUCR1SS PO (13:39)
[2017-02-23 14:01] VITALS: BP 132/82
--- NOTE | 2017-02-23 15:19 | ED PDOC ---
Post-Departure Follow-Up dr alvarez faxed formal report of ct abd/p for fu Elsie Flores MD February 23, 2017 15:19
== END 2017-02-23 14:06 | disposition home or self-care (01) ==
LOC: M ED 09:51
DX: R93.5 Abnormal findings on diagnostic imaging of other abdominal regions, including retroperitoneum (principal); R10.9 Unspecified abdominal pain; J02.9 Acute pharyngitis, unspecified; K55.1 Chronic vascular disorders of intestine; R11.0 Nausea; F31.9 Bipolar disorder, unspecified; F17.210 Nicotine dependence, cigarettes, uncomplicated; Z88.8 Allergy status to other drugs, medicaments and biological substances
CPT/HCPCS: 36415; 74177; 80048; 80076; 81001; 83605; 83690; 85025; 87880; 96374; 96375; 96376; 99284; J2405; Q9963; Q9967

== ENCOUNTER 2017-02-26 08:32 | Emergency (ER) | payer OTHER ==
[~2017-02-26] VITALS: Ht 177.8 cm; Wt 108.9 kg
[~2017-02-26 08:32] MED LIST changes: +PERC5TAB6 PO; +PROT1TAB2 PO; +SUCR1SS PO
[2017-02-26 08:43] VITALS: BP 170/88
[2017-02-26] MEDS ORDERED: diphenhydrAMINE INJ 50MG/ML VIAL (J1200) IM STA (09:09)
== END 2017-02-26 12:32 | disposition left against medical advice (07) ==
LOC: EDBD 08:32 → M ED 10:06
DX: F31.12 Bipolar disorder, current episode manic without psychotic features, moderate (principal); I10 Essential (primary) hypertension; K55.1 Chronic vascular disorders of intestine; J45.990 Exercise induced bronchospasm; F17.210 Nicotine dependence, cigarettes, uncomplicated; Z88.8 Allergy status to other drugs, medicaments and biological substances; Z79.899 Other long term (current) drug therapy

== ENCOUNTER → 2017-03-11 | Outpatient (CLI) | payer OTHER ==
--- NOTE | 2017-03-11 16:23 | REP ---
Attempted MRI study of the abdomen: History: Liver lesions. Findings: Only community aide images could be obtained before the patient became too uncomfortable with claustrophobia to continue. Impression: Incomplete exam. I am informed the patient will reschedule in the larger aperture of magnet. Signed by Ronald Cazares MD 03/11/2017 05:23 P
== END ==
LOC: M RAD 15:08
PROVIDERS: ATTEND Surgery
DX: R93.2 Abnormal findings on diagnostic imaging of liver and biliary tract (principal)

== ENCOUNTER → 2017-03-14 | Outpatient (CLI) | payer OTHER | LOC: M RAD 07:36 | PROVIDERS: ATTEND Surgery | DX: Z53.8 Procedure and treatment not carried out for other reasons (principal) ==

== ENCOUNTER 2017-04-12 19:34 | Emergency (ER) | payer OTHER ==
[~2017-04-12] VITALS: Ht 177.8 cm; Wt 101.2 kg
[~2017-04-12 19:34] MED LIST changes: -ALBU83IN INH; -AMOX1POW6 XX; -CARA1TAB6 PO; -CYCL10TA PO; -DIFL150T PO; -DIPH2.5L; -EPIN0.3I6; -HYOS0.1248; -NEBUMIS2 XX; -PANT20TA; -PRED20TA PO; -PROAAER10 INH; -ROBA500T PO; -TESS100C PO; -TYLETAB14 PO; -Trazadone PO; -XANA0.5T PO; -ZANA4TAB PO; -ZITHTAB PO
[2017-04-12 19:35] VITALS: BP 144/87
[2017-04-12] MEDS ORDERED: CYCL10TA PO (20:34)
[2017-04-12] MEDS ORDERED: TYLETAB14 PO (20:34)
[2017-04-12] MEDS ORDERED: CYCLOBENZAPRINE 10 MG TAB PO ONE (20:45)
== END 2017-04-12 20:59 | disposition home or self-care (01) ==
LOC: M ED 19:34 → EDSEX 19:34 → M ED 20:59
DX: S39.012A Strain of muscle, fascia and tendon of lower back, initial encounter (principal); W01.0XXA Fall on same level from slipping, tripping and stumbling without subsequent striking against object, initial encounter; Y92.9 Unspecified place or not applicable; Y93.89 Activity, other specified; Y99.0 Civilian activity done for income or pay; F31.9 Bipolar disorder, unspecified; Z88.5 Allergy status to narcotic agent; Z88.6 Allergy status to analgesic agent; Z88.8 Allergy status to other drugs, medicaments and biological substances

== ENCOUNTER → 2017-04-12 | Outpatient (REF) | payer OTHER ==
[~2017-04-12] MED LIST changes: +ALBU83IN INH; +AMOX1POW6 XX; -AUGM875T27 PO; +AUGM875T28 PO; +CARA1TAB6 PO; +CYCL10TA PO; +DIFL150T PO; +DIPH2.5L; +EPIN0.3I6; +HYOS0.1248; +NEBUMIS2 XX; +PANT20TA; +PERC5TAB12 PO; -PERC5TAB6 PO; +PRED20TA PO; +PROAAER10 INH; +ROBA500T PO; +TESS100C PO; +TYLETAB14 PO; +Trazadone PO; +XANA0.5T PO; +ZANA4TAB PO; +ZITHTAB PO
== END ==
LOC: M LAB REF 10:30
PROVIDERS: ATTEND Physician Assistant
DX: N50.819 Testicular pain, unspecified (principal)

== ENCOUNTER 2017-04-13 13:32 | Emergency (ER) | payer OTHER ==
[~2017-04-13] VITALS: Ht 177.8 cm; Wt 107.7 kg
[2017-04-13 13:32] VITALS: BP 143/87
[~2017-04-13 13:32] MED LIST changes: +CYCL10TA PO; +TYLETAB14 PO
== END 2017-04-13 14:22 | disposition left against medical advice (07) ==
LOC: M ED 13:32
DX: M54.9 Dorsalgia, unspecified (principal); Z53.29 Procedure and treatment not carried out because of patient's decision for other reasons

== ENCOUNTER 2017-05-03 14:05 | Emergency (ER) | payer OTHER ==
[~2017-05-03] VITALS: Ht 175.3 cm; Wt 108.2 kg
[2017-05-03 14:06] VITALS: BP 147/81
[2017-05-03] MEDS ORDERED: PRED20TA PO (14:43)
[2017-05-03] MEDS ORDERED: PERC5TAB12 PO ×2 (14:43→14:46)
[2017-05-03] MEDS ORDERED: ZANA4TAB PO (14:43)
== END 2017-05-03 15:07 | disposition home or self-care (01) ==
LOC: M ED 14:05
DX: M54.9 Dorsalgia, unspecified (principal); G89.29 Other chronic pain; M62.830 Muscle spasm of back; F32.9 Major depressive disorder, single episode, unspecified; F17.200 Nicotine dependence, unspecified, uncomplicated; Z88.8 Allergy status to other drugs, medicaments and biological substances

== ENCOUNTER 2017-05-11 13:20 | Emergency (ER) | payer OTHER ==
[~2017-05-11] VITALS: Ht 177.8 cm; Wt 126.3 kg
[~2017-05-11 13:20] MED LIST changes: +PRED20TA PO; +ZANA4TAB PO
[2017-05-11 13:34] VITALS: BP 143/78
[2017-05-11] MEDS ORDERED: HYOS0.1248 (13:43)
[2017-05-11] MEDS ORDERED: DIPH2.5L (13:43)
[2017-05-11] MEDS ORDERED: PANT20TA (13:43)
== END 2017-05-11 14:47 | disposition left against medical advice (07) ==
LOC: M ED 13:20
DX: R10.9 Unspecified abdominal pain (principal); Z53.29 Procedure and treatment not carried out because of patient's decision for other reasons

== ENCOUNTER 2017-06-08 14:33 | Emergency (ER) | payer MEDICAID, OTHER ==
[~2017-06-08] VITALS: Ht 177.8 cm; Wt 109.1 kg
[~2017-06-08 14:33] MED LIST changes: +DIPH2.5L; +HYOS0.1248; +PANT20TA
[2017-06-08 14:44] VITALS: BP 137/98
[2017-06-08] MEDS ORDERED: EPIN0.3I6 (14:47)
[2017-06-08] MEDS ORDERED: ISOVUE-370 76% 100ML VIAL (Q9967) As Ordered ONE (15:37)
== END 2017-06-08 16:00 | disposition left against medical advice (07) ==
LOC: M ED 14:33
DX: R68.89 Other general symptoms and signs (principal); Z53.29 Procedure and treatment not carried out because of patient's decision for other reasons

== ENCOUNTER → 2017-06-17 | Outpatient (REF) | payer OTHER ==
[~2017-06-17] MED LIST changes: +ALBU83IN INH; +AMOX1POW6 XX; +CARA1TAB6 PO; +DIFL150T PO; +EPIN0.3I6; +NEBUMIS2 XX; +PROAAER10 INH; +ROBA500T PO; +TESS100C PO; +Trazadone PO; +XANA0.5T PO; +ZITHTAB PO
== END ==
LOC: M LAB REF 10:58
PROVIDERS: ATTEND Physician Assistant Medical
DX: R19.7 Diarrhea, unspecified (principal)

== ENCOUNTER 2017-06-22 14:58 | Emergency (ER) | payer OTHER ==
[~2017-06-22] VITALS: Ht 177.8 cm; Wt 109.1 kg
[~2017-06-22 14:58] MED LIST changes: -ALBU83IN INH; -AMOX1POW6 XX; -CARA1TAB6 PO; -DIFL150T PO; -NEBUMIS2 XX; -PROAAER10 INH; -ROBA500T PO; -TESS100C PO; -Trazadone PO; -XANA0.5T PO; -ZITHTAB PO
[2017-06-22] MEDS ORDERED: KETOROLAC 30 MG/ML VIAL (J1885) IV ONE (17:00)
[2017-06-22] MEDS ORDERED: ONDANSETRON 4MG/2ML VIAL (J2405) IV ONE (17:00)
[2017-06-22] MEDS ORDERED: NS 1,000 ML IV ONE (17:00)
[2017-06-22 17:18] LABS: BASO % 0.5 % (0.0-1.0); EOS # 0.2 K/mm3 (0.0-0.50); EOS % 2.5 % (0.0-3.0); LARGE UNSTAINED CELL # 0.2 K/mm3 (0.0-0.4); LYMPH # 1.5 K/mm3 (1.5-6.5); MEAN CORPUSCULAR HEMOGLOBIN 30.3 pg (27.0-33.0); MEAN CORPUSCULAR HGB CONC 35.4 g/dl (32.0-36.5); MEAN CORPUSCULAR VOLUME 85.8 fl (80.0-96.0); MONO # 0.8 K/mm3 (0.0-0.8); MONO % 9.2 % (0.0-5.0); NEUTROPHILS # 5.7 K/mm3 (1.8-7.7); NEUTROPHILS % 67.8 % (36.0-66.0); PLATELET COUNT, AUTOMATED 231 k/mm3 (150-450); RED CELL DISTRIBUTION WIDTH 12.7 % (11.5-14.5); WHITE BLOOD COUNT 8.5 K/mm3 (4.0-10.0)
[2017-06-22 17:35] LABS: ALBUMIN 3.9 GM/DL (3.2-5.2); ALBUMIN/GLOBULIN RATIO 1.18 (1.00-1.93); ALKALINE PHOSPHATASE 72 U/L (45-117); ALT/SGPT 69 U/L (12-78); AMYLASE 41 U/L (25-115); ANION GAP 10 MEQ/L (8-16); AST/SGOT 28 U/L (15-37); BILIRUBIN,DIRECT < 0.1 MG/DL (0.0-0.2); BILIRUBIN,TOTAL 0.3 MG/DL (0.2-1.0); BLOOD UREA NITROGEN 11 MG/DL (7-18); CALCIUM LEVEL 9.1 MG/DL (8.5-10.1); CARBON DIOXIDE LEVEL 26 MEQ/L (21-32); CHLORIDE LEVEL 110 MEQ/L (98-107); CREATININE FOR GFR 0.82 MG/DL (0.70-1.30); GLOMERULAR FILTRATION RATE > 60.0 (>60); GLUCOSE, FASTING 93 MG/DL (70-105); POTASSIUM SERUM 4.3 MEQ/L (3.5-5.1); SODIUM LEVEL 146 MEQ/L (136-145); TOTAL PROTEIN 7.2 GM/DL (6.4-8.2)
[2017-06-22] MEDS ORDERED: CARA1TAB6 PO (17:55)
[2017-06-22 18:04] VITALS: BP 141/87
== END 2017-06-22 18:10 | disposition home or self-care (01) ==
LOC: M ED 14:58
DX: R10.84 Generalized abdominal pain (principal); G89.29 Other chronic pain; R11.2 Nausea with vomiting, unspecified; R19.7 Diarrhea, unspecified; R19.5 Other fecal abnormalities; K55.1 Chronic vascular disorders of intestine; I10 Essential (primary) hypertension; J45.909 Unspecified asthma, uncomplicated; F32.9 Major depressive disorder, single episode, unspecified; Z88.8 Allergy status to other drugs, medicaments and biological substances
CPT/HCPCS: 80048; 80076; 81001; 82150; 83690; 85025; 96361; 96374; 96375; 99283; J1885; J2405

== ENCOUNTER → 2017-06-27 | Outpatient (CLI) | payer OTHER ==
[~2017-06-27] MED LIST changes: +ALBU83IN INH; +AMOX1POW6 XX; +CARA1TAB6 PO; +DIFL150T PO; +NEBUMIS2 XX; +PROAAER10 INH; +ROBA500T PO; +TESS100C PO; +Trazadone PO; +XANA0.5T PO; +ZITHTAB PO
[2017-06-27 19:20] LABS: INR 0.87
[2017-06-27 22:09] LABS: ALBUMIN 4.2 GM/DL (3.2-5.2); ALKALINE PHOSPHATASE 75 U/L (45-117); ALT/SGPT 115 U/L (12-78); AST/SGOT 45 U/L (15-37); BILIRUBIN,DIRECT 0.1 MG/DL (0.0-0.2); BILIRUBIN,TOTAL 0.3 MG/DL (0.2-1.0); FERRITIN 179 NG/ML (26-388); IMMUNOGLOBULIN G 1170 MG/DL (681-1648); PERCENT SATURATION 18.2 % (19.7-50.0); TOTAL IRON BINDING CAPACITY 380 UG/DL (250-450); TOTAL PROTEIN 7.7 GM/DL (6.4-8.2)
[2017-06-30 11:10] LABS: HEPATITIS B SURFACE ANTIBODY NEGATIVE (POSITIVE)
[2017-07-01 00:06] LABS: ALPHA 1 ANTITRYPSIN 130 mg/dL (90-200); TISSUE TRANSGLUTAMINASE IgG <2 U/mL (0-5)
[2017-07-01 12:44] LABS: ALBUMIN 4.72 GM/DL (3.29-5.55); ALBUMIN % 61.3 % (55.8-66.1); GAMMA GLOBULIN % 14.9 % (11.1-18.8)
== END ==
LOC: M LAB 17:10
PROVIDERS: ATTEND Internal Medicine Gastroenterology
DX: R93.3 Abnormal findings on diagnostic imaging of other parts of digestive tract (principal)

== ENCOUNTER 2017-07-01 00:05 | Emergency (ER) | payer OTHER ==
[~2017-07-01] VITALS: Ht 177.8 cm; Wt 105.5 kg
[~2017-07-01 00:05] MED LIST changes: -ALBU83IN INH; -AMOX1POW6 XX; -DIFL150T PO; -NEBUMIS2 XX; -PROAAER10 INH; -ROBA500T PO; -TESS100C PO; -Trazadone PO; -XANA0.5T PO; -ZITHTAB PO
[2017-07-01] MEDS ORDERED: TYLE325T5 PO (00:24)
[2017-07-01] MEDS ORDERED: AMOX1POW6 XX (00:24)
[2017-07-01] MEDS ORDERED: ROBA500T PO (01:44)
[2017-07-01] MEDS ORDERED: METHOCARBAMOL 750 MG TAB PO ONE (01:45)
[2017-07-01] MEDS ORDERED: traMADol 50 MG TAB PO ONE (01:45)
[2017-07-01] MEDS: METHOCARBAMOL 500 MG TAB PO ONE ×2 (01:45→01:51)
[2017-07-01 02:00] VITALS: BP 141/76
--- NOTE | 2017-07-01 02:25 | REP ---
Clinical: Trauma . Technique: AP, lateral, bilateral oblique, and coned-down views. Findings: Alignment and lordosis is maintained. The vertebral bodies including transverse process and spinous processes are intact and normal. There is no evidence for acute fracture / compression injury or subluxation. No evidence for spondylolysis or spondylolisthesis. No significant degenerative change is noted. Impression: Normal lumbosacral spine radiograph series. Signed by Bandar Ling MD 07/01/2017 02:16 A
== END 2017-07-01 02:10 | disposition home or self-care (01) ==
LOC: M ED 00:05
DX: S20.229A Contusion of unspecified back wall of thorax, initial encounter (principal); W19.XXXA Unspecified fall, initial encounter; Y92.89 Other specified places as the place of occurrence of the external cause; Y93.89 Activity, other specified; Y99.8 Other external cause status; F17.210 Nicotine dependence, cigarettes, uncomplicated; Z79.899 Other long term (current) drug therapy; Z88.8 Allergy status to other drugs, medicaments and biological substances

== ENCOUNTER → 2017-07-04 | Outpatient (CLI) | payer OTHER ==
[~2017-07-04] MED LIST changes: +ALBU83IN INH; +AMOX1POW6 XX; +DIFL150T PO; +NEBUMIS2 XX; +PROAAER10 INH; +ROBA500T PO; +TESS100C PO; +Trazadone PO; +XANA0.5T PO; +ZITHTAB PO
--- NOTE | 2017-07-04 10:27 | REP ---
MRI LIVER WITH AND WITHOUT CONTRAST: Multiple sequences obtained in the axial and coronal plane prior to and following the intravenous administration of 21 mL of gadolinium. Correlation made with multiple prior CT exams, most recently, 02/25/2017 and dating back to 12/10/2015. On the precontrast images, subtle high signal nodular areas are seen on the T2 fat sat sequence which are more hypointense on T2 without fat saturation. Comparing the in-phase to the [id number] images, there is diffuse fatty infiltration of the liver with those nodular areas showing no internal fat content. One of the nodular areas is in the posterior right dome, measuring about 1.7 cm in diameter. There are two other adjacent nodular areas more centrally and inferiorly near the audra hepatis measuring about 1.8 cm in diameter. These are just anterior to the inferior vena cava. At that same level in the posterior right lobe, another nodular area demonstrates the same signal characteristics measuring 1.1 cm in diameter. These four nodular areas are hyperintense on the precontrast T1 fat sat images and are more visible on the postcontrast images with mild enhancement. There appear to be small vascular structures traversing through these nodular areas. Findings are most consistent with diffuse fatty infiltration of the liver with four focal areas of the liver which are not infiltrated with fat and area spared areas of parenchyma. The most central area just anterior to the inferior vena cava has not changed in size compared to the prior CT of 01/14/2016, which would be consistent with a benign entity. The other three areas have progressively mildly increased in size although, compared to the 02/25/2017 exam, lesion at the four areas have not changed. Spleen is unremarkable. Adrenals, pancreas, and kidneys appear unremarkable. No adenopathy is seen. There is no free fluid in the abdomen. IMPRESSION: MR findings are most consistent with diffuse fatty infiltration with four focal areas of fatty sparing. There are no other significant findings. Signed by Jv Tinajero MD 07/04/2017 05:15 P
== END ==
LOC: M RAD 07:39
PROVIDERS: ATTEND Physician Assistant
DX: K76.89 Other specified diseases of liver (principal)
CPT/HCPCS: 74183; A9576

== ENCOUNTER 2017-07-22 13:41 | Emergency (ER) | payer OTHER ==
[~2017-07-22] VITALS: Ht 177.8 cm; Wt 112.7 kg
[~2017-07-22 13:41] MED LIST changes: -ALBU83IN INH; -DIFL150T PO; -NEBUMIS2 XX; -PROAAER10 INH; -TESS100C PO; -Trazadone PO; -XANA0.5T PO; -ZITHTAB PO
[2017-07-22] MEDS ORDERED: Trazadone PO (13:54)
[2017-07-22] MEDS ORDERED: XANA0.5T PO (13:54)
[2017-07-22] MEDS ORDERED: ONDANSETRON 4MG/2ML VIAL (J2405) IV ONE (14:45)
[2017-07-22] MEDS ORDERED: NS 1,000 ML IV ONE (14:45)
[2017-07-22] MEDS ORDERED: diphenhydrAMINE INJ 50MG/ML VIAL (J1200) IV ONE (14:45)
[2017-07-22] MEDS ORDERED: ALBUTEROL SULFATE 2.5 MG/0.5 ML INH NEB SOLN NEB ONE (15:00)
[2017-07-22] MEDS ORDERED: methylPREDNISolone INJ 125 MG/2 ML VIAL (J2930) IV ONE (15:00)
[2017-07-22] MEDS ORDERED: AUGM875T28 PO (16:09)
[2017-07-22] MEDS ORDERED: TESS100C PO (16:11)
[2017-07-22] MEDS ORDERED: DIFL150T PO (16:11)
--- NOTE | 2017-07-22 16:46 | REP ---
Chest two views HISTORY: Shortness of breath Comparison: 01/03/2017 The lungs are clear. The heart is normal in size. The pulmonary vasculature is normal in appearance. The bony structure is intact. IMPRESSION: No acute disease. Signed by Rolando Tidwell MD 07/22/2017 04:38 P
[2017-07-22] MEDS ORDERED: IPRATROPIUM 0.5MG/ALBUTEROL 2.5MG INH SOL UD 3ML (DUONEB)(J7620) NEB ONE (17:00)
[2017-07-22 17:10] VITALS: BP 145/79
[2017-07-22] MEDS ORDERED: PROAAER10 INH (17:10)
[2017-07-22] MEDS ORDERED: PRED20TA PO (17:10)
[2017-07-22] MEDS ORDERED: NEBUMIS2 XX ×2 (17:10→17:14)
[2017-07-22] MEDS ORDERED: ZITHTAB PO (17:10)
[2017-07-22] MEDS ORDERED: ALBU83IN INH (17:10)
[2017-07-22] MEDS ORDERED: ZOFR4TAB3 PO (17:12)
== END 2017-07-22 17:32 | disposition home or self-care (01) ==
LOC: M ED 13:41
DX: J20.9 Acute bronchitis, unspecified (principal); R11.10 Vomiting, unspecified; J45.909 Unspecified asthma, uncomplicated; F17.210 Nicotine dependence, cigarettes, uncomplicated; Z88.8 Allergy status to other drugs, medicaments and biological substances; Z88.6 Allergy status to analgesic agent; Z79.51 Long term (current) use of inhaled steroids; Z79.899 Other long term (current) drug therapy; Z79.52 Long term (current) use of systemic steroids
CPT/HCPCS: 71020; 94640; 96361; 96374; 96375; 99283; J1200; J2405; J2930

== ENCOUNTER 2017-08-03 14:09 | Emergency (ER) | payer OTHER ==
[~2017-08-03] VITALS: Ht 177.8 cm; Wt 104.5 kg
[2017-08-03 14:09] VITALS: BP 153/102
[~2017-08-03 14:09] MED LIST changes: +ALBU83IN INH; +DIFL150T PO; +NEBUMIS2 XX; +PROAAER10 INH; +TESS100C PO; +Trazadone PO; +XANA0.5T PO; +ZITHTAB PO
--- NOTE | 2017-08-04 17:47 | ECGEPIP ---
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
== END 2017-08-03 14:49 | disposition left against medical advice (07) ==
LOC: M ED 14:09
DX: Z53.21 Procedure and treatment not carried out due to patient leaving prior to being seen by health care provider (principal)

== ENCOUNTER 2017-08-23 09:52 | Emergency (ER) | payer OTHER ==
[~2017-08-23] VITALS: Ht 177.8 cm; Wt 112.7 kg
[2017-08-23 09:56] VITALS: BP 137/106
[2017-08-23] MEDS ORDERED: CYCLOBENZAPRINE 10 MG TAB PO ONE (11:00)
[2017-08-23] MEDS ORDERED: ACETAMINOPHEN 325 MG TAB PO ONE (11:00)
[2017-08-23] MEDS ORDERED: METHOCARBAMOL 500 MG TAB PO ONE (11:00)
[2017-08-23] MEDS ORDERED: CYCL10TA PO (11:02)
== END 2017-08-23 11:10 | disposition home or self-care (01) ==
LOC: M ED 09:52
DX: S39.012A Strain of muscle, fascia and tendon of lower back, initial encounter (principal); W11.XXXA Fall on and from ladder, initial encounter; Y92.89 Other specified places as the place of occurrence of the external cause; Y93.89 Activity, other specified; Y99.8 Other external cause status; J45.909 Unspecified asthma, uncomplicated; I10 Essential (primary) hypertension; F17.210 Nicotine dependence, cigarettes, uncomplicated; Z88.8 Allergy status to other drugs, medicaments and biological substances; Z79.899 Other long term (current) drug therapy

== ENCOUNTER 2017-08-29 00:41 | Emergency (ER) | payer OTHER ==
[~2017-08-29] VITALS: Ht 177.8 cm; Wt 112.7 kg
[2017-08-29 00:41] VITALS: BP 193/95
[2017-08-29] MEDS ORDERED: CYCL10TA PO (01:28)
[2017-08-29] MEDS ORDERED: PERCOCET 5MG/325MG TAB PO ONE (01:30)
== END 2017-08-29 02:13 | disposition home or self-care (01) ==
LOC: M ED 00:41
DX: M54.5 Low back pain (principal); G89.29 Other chronic pain; X58.XXXA Exposure to other specified factors, initial encounter; Y92.89 Other specified places as the place of occurrence of the external cause; Y93.89 Activity, other specified; Y99.8 Other external cause status; J45.909 Unspecified asthma, uncomplicated; F31.9 Bipolar disorder, unspecified; Z83.3 Family history of diabetes mellitus; Z79.899 Other long term (current) drug therapy; Z88.8 Allergy status to other drugs, medicaments and biological substances

== ENCOUNTER 2017-10-02 19:10 | Emergency (ER) | payer OTHER | END 2017-10-02 20:57 | disposition home or self-care (01) | LOC: M ED 19:10 | DX: S13.4XXA Sprain of ligaments of cervical spine, initial encounter (principal); W01.198A Fall on same level from slipping, tripping and stumbling with subsequent striking against other object, initial encounter; Y92.828 Other wilderness area as the place of occurrence of the external cause; Y93.23 Activity, snow (alpine) (downhill) skiing, snowboarding, sledding, tobogganing and snow tubing; I10 Essential (primary) hypertension; J45.909 Unspecified asthma, uncomplicated; F17.210 Nicotine dependence, cigarettes, uncomplicated; Z88.8 Allergy status to other drugs, medicaments and biological substances | CPT/HCPCS: 72125 ==

== ENCOUNTER → 2017-11-12 | Outpatient (CLI) | payer OTHER ==
[2017-11-13 00:21] LABS: CHLAMYDIA DNA AMPLIFICATION NEGATIVE (NEGATIVE); GC DNA AMPLIFICATION NEGATIVE (NEGATIVE)
== END ==
LOC: M RAD 19:46
DX: M25.562 Pain in left knee (principal); M25.462 Effusion, left knee
CPT/HCPCS: 73564

== ENCOUNTER 2017-11-13 10:10 | Emergency (ER) | payer OTHER ==
[2017-11-13] MEDS: ACETAMINOPHEN 325 MG TAB PO (11:02)
[2017-11-13] MEDS: CYCLOBENZAPRINE 10 MG TAB PO (11:03)
== END 2017-11-13 11:06 | disposition home or self-care (01) ==
LOC: M ED 10:10
DX: S76.312A Strain of muscle, fascia and tendon of the posterior muscle group at thigh level, left thigh, initial encounter (principal); X50.3XXA Overexertion from repetitive movements, initial encounter; Y92.59 Other trade areas as the place of occurrence of the external cause; I10 Essential (primary) hypertension; J45.909 Unspecified asthma, uncomplicated; Z79.899 Other long term (current) drug therapy; Z88.8 Allergy status to other drugs, medicaments and biological substances; Z98.890 Other specified postprocedural states
CPT/HCPCS: 99282

== ENCOUNTER 2018-01-05 10:27 | Emergency (ER) | payer OTHER ==
[2018-01-05 13:24] LABS: INFLUENZA A AMPLIFICATION NEGATIVE (NEGATIVE); INFLUENZA B AMPLIFICATION NEGATIVE (NEGATIVE)
== END 2018-01-05 13:15 | disposition left against medical advice (07) ==
LOC: M ED 10:27
DX: J06.9 Acute upper respiratory infection, unspecified (principal); R10.9 Unspecified abdominal pain; R07.9 Chest pain, unspecified; I49.9 Cardiac arrhythmia, unspecified; I10 Essential (primary) hypertension; F31.9 Bipolar disorder, unspecified; F41.9 Anxiety disorder, unspecified; J45.909 Unspecified asthma, uncomplicated; F17.210 Nicotine dependence, cigarettes, uncomplicated; Z88.8 Allergy status to other drugs, medicaments and biological substances; Z79.899 Other long term (current) drug therapy
CPT/HCPCS: 93005

== ENCOUNTER → 2018-01-05 | Outpatient (CLI) | payer OTHER | LOC: M RAD 19:59 | DX: R05 Cough (principal); R06.2 Wheezing | CPT/HCPCS: 71046 ==

== ENCOUNTER 2018-03-06 00:36 | Emergency (ER) | payer OTHER ==
[2018-03-06 01:17] LABS: BASO # 0.1 10^3/uL (0.0-0.2); BASO % 0.4 % (0.0-1.0); EOS # 0.2 10^3/uL (0.0-0.50); EOS % 1.7 % (0.0-3.0); HEMATOCRIT 48.6 % (42.0-52.0); HEMOGLOBIN 16.7 g/dl (13.5-17.5); IMMATURE GRANULOCYTE % 0.4 % (0-3.0); LYMPH % 17.6 % (24.0-44.0); MEAN CORPUSCULAR HEMOGLOBIN 28.5 pg (27.0-33.0); MEAN CORPUSCULAR HGB CONC 34.4 g/dl (32.0-36.5); MEAN CORPUSCULAR VOLUME 82.9 fl (80.0-96.0); MONO % 8.6 % (0.0-5.0); NEUTROPHILS % 71.3 % (36.0-66.0); PLATELET COUNT, AUTOMATED 249 10^3/uL (150-450); RED BLOOD COUNT 5.86 10^6/uL (4.30-6.10); RED CELL DISTRIBUTION WIDTH 13.5 % (11.5-14.5); WHITE BLOOD COUNT 11.2 10^3/uL (4.0-10.0)
[2018-03-06] MEDS: MORPHINE 4 MG/ML 1ML VIAL/SYRINGE (J2270) IV ×2 (01:21→02:29)
[2018-03-06 01:47] LABS: BLOOD UREA NITROGEN 13 MG/DL (7-18); GLOMERULAR FILTRATION RATE > 60.0 (>60); GLUCOSE, FASTING 117 MG/DL (70-100)
[2018-03-06 01:48] LABS: ANION GAP 7 MEQ/L (8-16); CALCIUM LEVEL 9.1 MG/DL (8.5-10.1); CARBON DIOXIDE LEVEL 25 MEQ/L (21-32); CHLORIDE LEVEL 109 MEQ/L (98-107); POTASSIUM SERUM 3.8 MEQ/L (3.5-5.1); SODIUM LEVEL 141 MEQ/L (136-145)
== END 2018-03-06 04:54 | disposition home or self-care (01) ==
LOC: M ED 00:36
DX: L76.34 Postprocedural seroma of skin and subcutaneous tissue following other procedure (principal); I10 Essential (primary) hypertension; J45.909 Unspecified asthma, uncomplicated; Z72.0 Tobacco use; Z79.899 Other long term (current) drug therapy; Z88.6 Allergy status to analgesic agent; Z88.8 Allergy status to other drugs, medicaments and biological substances
CPT/HCPCS: J2270

== ENCOUNTER 2018-03-27 18:00 | Emergency (ER) | payer OTHER | END 2018-03-27 19:19 | disposition left against medical advice (07) | LOC: M ED 18:00 | DX: Z53.29 Procedure and treatment not carried out because of patient's decision for other reasons (principal) ==

== ENCOUNTER 2018-04-19 10:23 | Emergency (ER) | payer OTHER ==
[2018-04-19] MEDS: ONDANSETRON 4MG/2ML VIAL (J2405) IV (11:44)
[2018-04-19] MEDS: NS 1,000 ML IV (11:44)
[2018-04-19 11:47] LABS: BASO % 0.5 % (0.0-1.0); EOS # 0.1 10^3/uL (0.0-0.50); EOS % 1.2 % (0.0-3.0); HEMATOCRIT 49.9 % (42.0-52.0); HEMOGLOBIN 16.9 g/dl (13.5-17.5); IMMATURE GRANULOCYTE % 0.3 % (0-3.0); LYMPH # 1.7 10^3/uL (1.5-6.5); LYMPH % 19.3 % (24.0-44.0); MEAN CORPUSCULAR HEMOGLOBIN 28.2 pg (27.0-33.0); MEAN CORPUSCULAR HGB CONC 33.9 g/dl (32.0-36.5); MEAN CORPUSCULAR VOLUME 83.2 fl (80.0-96.0); MONO # 0.7 10^3/uL (0.0-0.8); MONO % 8.3 % (0.0-5.0); NEUTROPHILS # 6.2 10^3/uL (1.8-7.7); NEUTROPHILS % 70.4 % (36.0-66.0); PLATELET COUNT, AUTOMATED 238 10^3/uL (150-450); RED CELL DISTRIBUTION WIDTH 12.9 % (11.5-14.5); WHITE BLOOD COUNT 8.8 10^3/uL (4.0-10.0)
[2018-04-19 11:56] LABS: KETONE, URINE AUTO RFX NEGATIVE (NEGATIVE); LEUKOCYTE ESTERASE UR AUTO RFX NEGATIVE (NEGATIVE); MUCUS, URINE RFX SMALL (NEGATIVE); NITRITE, URINE AUTO RFX NEGATIVE (NEGATIVE); RBC, URINE AUTO RFX 0 /HPF (0-3); SPECIFIC GRAVITY UR AUTO RFX 1.024 (1.002-1.035); SQUAM EPITHELIAL CELL UR AURFX 0 /HPF (0-6); WBC, URINE AUTO RFX 1 /HPF (0-3)
[2018-04-19 12:18] LABS: AMPHETAMINES LEVEL URINE NEGATIVE (NEGATIVE); BARBITURATES URINE NEGATIVE (NEGATIVE); BENZODIAZEPINES URINE NEGATIVE (NEGATIVE); CANNABINOIDS URINE NEGATIVE (NEGATIVE); COCAINE METABOLITE URINE NEGATIVE (NEGATIVE); METHADONE URINE NEGATIVE (NEGATIVE); OPIATES URINE NEGATIVE (NEGATIVE); PHENCYCLIDINE URINE NEGATIVE (NEGATIVE)
[2018-04-19 12:19] LABS: ALBUMIN 4.2 GM/DL (3.2-5.2); ALKALINE PHOSPHATASE 81 U/L (45-117); ALT/SGPT 84 U/L (12-78); AMYLASE 41 U/L (25-115); ANION GAP 8 MEQ/L (8-16); AST/SGOT 36 U/L (7-37); BILIRUBIN,DIRECT 0.1 MG/DL (0.0-0.2); BILIRUBIN,TOTAL 0.5 MG/DL (0.2-1.0); BLOOD UREA NITROGEN 16 MG/DL (7-18); CALCIUM LEVEL 8.7 MG/DL (8.5-10.1); CARBON DIOXIDE LEVEL 24 MEQ/L (21-32); CHLORIDE LEVEL 108 MEQ/L (98-107); CREATININE FOR GFR 1.02 MG/DL (0.70-1.30); GLOMERULAR FILTRATION RATE > 60.0 (>60); GLUCOSE, FASTING 94 MG/DL (70-100); LIPASE 95 U/L (73-393); POTASSIUM SERUM 4.3 MEQ/L (3.5-5.1); SODIUM LEVEL 140 MEQ/L (136-145); TOTAL PROTEIN 7.7 GM/DL (6.4-8.2)
[2018-04-19 12:21] LABS: LACTIC ACID SEPSIS PROTOCOL 0.6 MMOL/L (0.4-2.0)
== END 2018-04-19 14:25 | disposition home or self-care (01) ==
LOC: M ED 10:23
DX: R10.32 Left lower quadrant pain (principal); R11.0 Nausea; J45.909 Unspecified asthma, uncomplicated; Z87.19 Personal history of other diseases of the digestive system; Z79.899 Other long term (current) drug therapy; Z88.8 Allergy status to other drugs, medicaments and biological substances; F17.210 Nicotine dependence, cigarettes, uncomplicated
CPT/HCPCS: J2405

== ENCOUNTER 2018-04-25 16:32 | Emergency (ER) | payer OTHER | END 2018-04-25 17:09 | disposition home or self-care (01) | LOC: M ED 16:32 | DX: L02.415 Cutaneous abscess of right lower limb (principal); A49.01 Methicillin susceptible Staphylococcus aureus infection, unspecified site; J45.909 Unspecified asthma, uncomplicated; F31.9 Bipolar disorder, unspecified; Z79.899 Other long term (current) drug therapy; Z88.8 Allergy status to other drugs, medicaments and biological substances; F17.210 Nicotine dependence, cigarettes, uncomplicated | CPT/HCPCS: 99282 ==

== ENCOUNTER 2018-06-05 13:38 | Emergency (ER) | payer OTHER ==
[2018-06-05] MEDS: NORCO, ANEXSIA 5/325MG TABLET (HYDROcodone/ACETAMINOPHEN) PO (15:19)
== END 2018-06-05 15:27 | disposition home or self-care (01) ==
LOC: M ED 13:38
DX: L02.31 Cutaneous abscess of buttock (principal); I10 Essential (primary) hypertension; Z86.14 Personal history of Methicillin resistant Staphylococcus aureus infection; Z88.8 Allergy status to other drugs, medicaments and biological substances
CPT/HCPCS: 99283

== ENCOUNTER 2018-06-28 19:26 | Emergency (ER) | payer OTHER | END 2018-06-28 20:34 | disposition home or self-care (01) | LOC: M ED 19:26 | DX: L73.9 Follicular disorder, unspecified (principal); F17.200 Nicotine dependence, unspecified, uncomplicated; Z86.14 Personal history of Methicillin resistant Staphylococcus aureus infection; Z79.899 Other long term (current) drug therapy | CPT/HCPCS: 99282 ==

== ENCOUNTER 2018-07-01 19:07 | Inpatient (IN) | payer MEDICAID, OTHER ==
[2018-07-01] MEDS: CHARCOAL ACTIVATED LIQUID 25 GM/120 ML BTL PO (19:15)
[2018-07-01] MEDS: NS 1,000 ML IV (19:15)
[2018-07-01] MEDS ORDERED: ONDANSETRON 4MG/2ML VIAL (J2405) As Ordered (19:37)
[2018-07-01] MEDS: ONDANSETRON 4MG/2ML VIAL (J2405) IV (19:43)
[2018-07-01 19:59] LABS: BASO # 0.1 10^3/uL (0.0-0.2); BASO % 0.5 % (0.0-1.0); EOS # 0.1 10^3/uL (0.0-0.50); EOS % 1.4 % (0.0-3.0); HEMATOCRIT 45.9 % (42.0-52.0); HEMOGLOBIN 15.7 g/dl (13.5-17.5); IMMATURE GRANULOCYTE % 0.1 % (0-3.0); LYMPH % 22.2 % (24.0-44.0); MEAN CORPUSCULAR HEMOGLOBIN 28.1 pg (27.0-33.0); MEAN CORPUSCULAR HGB CONC 34.2 g/dl (32.0-36.5); MEAN CORPUSCULAR VOLUME 82.3 fl (80.0-96.0); MONO # 0.7 10^3/uL (0.0-0.8); NEUTROPHILS # 6.2 10^3/uL (1.8-7.7); NEUTROPHILS % 67.8 % (36.0-66.0); PLATELET COUNT, AUTOMATED 216 10^3/uL (150-450); RED BLOOD COUNT 5.58 10^6/uL (4.30-6.10); RED CELL DISTRIBUTION WIDTH 12.9 % (11.5-14.5); WHITE BLOOD COUNT 9.2 10^3/uL (4.0-10.0)
[2018-07-01 20:36] LABS: ACETAMINOPHEN LEVEL < 2.0 UG/ML (10.0-30.0); ALBUMIN/GLOBULIN RATIO 1.29 (1.00-1.93); ALKALINE PHOSPHATASE 71 U/L (45-117); ALT/SGPT 88 U/L (12-78); ANION GAP 10 MEQ/L (8-16); AST/SGOT 38 U/L (7-37); BILIRUBIN,DIRECT 0.1 MG/DL (0.0-0.2); BILIRUBIN,TOTAL 0.3 MG/DL (0.2-1.0); BLOOD UREA NITROGEN 9 MG/DL (7-18); CALCIUM LEVEL 8.7 MG/DL (8.5-10.1); CARBON DIOXIDE LEVEL 24 MEQ/L (21-32); CHLORIDE LEVEL 107 MEQ/L (98-107); CPK CREATINE PHOSPHOKINASE 266 U/L (39-308); CREATININE FOR GFR 0.96 MG/DL (0.70-1.30); ETHYL ALCOHOL (ETHANOL) < 0.003 % (0.000-0.010); GLOMERULAR FILTRATION RATE > 60.0 (>60); GLUCOSE, FASTING 137 MG/DL (70-100); MB/CK RELATIVE INDEX 0.86 (< OR =4); POTASSIUM SERUM 3.6 MEQ/L (3.5-5.1); SALICYLATE LEVEL 3.1 MG/DL (5.0-30.0); SODIUM LEVEL 141 MEQ/L (136-145); TOTAL PROTEIN 7.1 GM/DL (6.4-8.2); TROPONIN I < 0.02 NG/ML (< 0.10)
[2018-07-01 21:10] LABS: AMPHETAMINES LEVEL URINE NEGATIVE (NEGATIVE); BARBITURATES URINE NEGATIVE (NEGATIVE); BENZODIAZEPINES URINE NEGATIVE (NEGATIVE); CANNABINOIDS URINE NEGATIVE (NEGATIVE); COCAINE METABOLITE URINE NEGATIVE (NEGATIVE); METHADONE URINE NEGATIVE (NEGATIVE); OPIATES URINE NEGATIVE (NEGATIVE); PHENCYCLIDINE URINE NEGATIVE (NEGATIVE)
[2018-07-01] MEDS: chlorproMAZINE INJ 50MG/2ML AMP (J3230) IM (22:42)
[2018-07-01] MEDS: diphenhydrAMINE INJ 50MG/ML VIAL (J1200) IM (22:42)
[2018-07-01] MEDS ORDERED: diphenhydrAMINE INJ 50MG/ML VIAL (J1200) As Ordered (22:44)
[2018-07-01] MEDS ORDERED: HALOPERIDOL 5 MG/ML VIAL (J1630) As Ordered (22:54)
[2018-07-01] MEDS: HALOPERIDOL 5 MG/ML VIAL (J1630) IM ×2 (22:54→23:57)
[2018-07-01] MEDS ORDERED: OLANZapine ORAL DISINTEGRATING TAB 5MG PO (23:55)
[2018-07-02] MEDS: diphenhydrAMINE INJ 50MG/ML VIAL (J1200) IM
[2018-07-02] MEDS ORDERED: traZODone 50 MG TAB PO
[2018-07-02] MEDS ORDERED: MAALOX 30 ML SUSP *UDC PO
[2018-07-02] MEDS ORDERED: HALOPERIDOL 5 MG TAB PO
[2018-07-02] MEDS ORDERED: clonazePAM 1 MG TAB PO
[2018-07-02] MEDS ORDERED: ACETAMINOPHEN TAB 650MG DOSE (2X325MG) PO
[2018-07-02] MEDS ORDERED: MOM 30ML SUSPENSION UDC PO
[2018-07-02] MEDS ORDERED: OLANZapine ORAL DISINTEGRATING TAB 5MG PO (00:15)
[2018-07-02] MEDS ORDERED: OLANZapine 10 MG TAB PO ×2 (00:19→09:00)
[2018-07-02] MEDS: clonazePAM 1 MG TAB PO ×3 (06:09→17:01)
[2018-07-02] MEDS: OLANZapine 10 MG TAB PO (09:00)
[2018-07-02] MEDS: BACTRIM 160MG/800MG DS TAB PO (09:00)
[2018-07-02] MEDS ORDERED: diphenhydrAMINE 50 MG CAP PO (14:00)
[2018-07-02] MEDS ORDERED: OLANZapine 5 MG TAB PO (21:00)
[2018-07-02] MEDS ORDERED: PALIPERIDONE 3 MG ER TAB (INVEGA) PO (21:00)
== END 2018-07-02 17:15 | disposition home or self-care (01) | DRG 753 ==
LOC: M ED INP 23:52 → M PSY 07-02 02:15 → M ED 19:07
DX: F31.9 Bipolar disorder, unspecified (principal); F17.210 Nicotine dependence, cigarettes, uncomplicated; T40.4X2A Poisoning by other synthetic narcotics, intentional self-harm, initial encounter; Y92.009 Unspecified place in unspecified non-institutional (private) residence as the place of occurrence of the external cause; Z79.899 Other long term (current) drug therapy; Z88.6 Allergy status to analgesic agent; Z88.8 Allergy status to other drugs, medicaments and biological substances

== ENCOUNTER 2018-07-02 18:58 | Emergency (ER) | payer OTHER, MEDICAID ==
[2018-07-02] MEDS: diphenhydrAMINE INJ 50MG/ML VIAL (J1200) IM (19:01)
[2018-07-02] MEDS: BENZTROPINE 2 MG TAB PO (19:24)
[2018-07-02] MEDS ORDERED: BENZTROPINE 2 MG TAB PO (20:15)
== END 2018-07-02 20:30 | disposition home or self-care (01) ==
LOC: M ED 18:58
DX: G24.9 Dystonia, unspecified (principal); T43.3X5A Adverse effect of phenothiazine antipsychotics and neuroleptics, initial encounter; X58.XXXA Exposure to other specified factors, initial encounter; F31.9 Bipolar disorder, unspecified; F43.20 Adjustment disorder, unspecified; Z88.8 Allergy status to other drugs, medicaments and biological substances
CPT/HCPCS: J1200

== ENCOUNTER 2018-07-02 22:06 | Emergency (ER) | payer OTHER ==
[2018-07-02] MEDS ORDERED: diphenhydrAMINE INJ 50MG/ML VIAL (J1200) IM ×2 (22:09→22:44)
[2018-07-02] MEDS: diphenhydrAMINE 50 MG CAP PO (23:09)
== END 2018-07-02 23:27 | disposition home or self-care (01) ==
LOC: M ED 22:06
DX: G24.9 Dystonia, unspecified (principal); T43.3X5A Adverse effect of phenothiazine antipsychotics and neuroleptics, initial encounter; X58.XXXA Exposure to other specified factors, initial encounter; F31.9 Bipolar disorder, unspecified; Z79.899 Other long term (current) drug therapy; Z88.8 Allergy status to other drugs, medicaments and biological substances
CPT/HCPCS: 96372

== ENCOUNTER 2018-07-05 22:41 | Emergency (ER) | payer OTHER | END 2018-07-05 23:08 | disposition home or self-care (01) | LOC: M ED 22:41 | DX: L02.416 Cutaneous abscess of left lower limb (principal); J45.909 Unspecified asthma, uncomplicated; K55.1 Chronic vascular disorders of intestine | CPT/HCPCS: 99282 ==

== ENCOUNTER 2018-07-08 20:16 | Emergency (ER) | payer OTHER ==
[2018-07-08] MEDS: ONDANSETRON 4MG/2ML VIAL (J2405) IV (20:45)
[2018-07-08] MEDS: NS 1,000 ML IV (20:45)
[2018-07-08 21:05] LABS: BASO # 0.1 10^3/uL (0.0-0.2); BASO % 0.8 % (0.0-1.0); EOS # 0.5 10^3/uL (0.0-0.50); EOS % 4.4 % (0.0-3.0); HEMATOCRIT 47.1 % (42.0-52.0); HEMOGLOBIN 15.8 g/dl (13.5-17.5); IMMATURE GRANULOCYTE % 0.4 % (0-3.0); LYMPH # 2.5 10^3/uL (1.5-6.5); LYMPH % 24.2 % (24.0-44.0); MEAN CORPUSCULAR HEMOGLOBIN 28.2 pg (27.0-33.0); MEAN CORPUSCULAR HGB CONC 33.5 g/dl (32.0-36.5); MONO # 0.9 10^3/uL (0.0-0.8); MONO % 8.6 % (0.0-5.0); NEUTROPHILS # 6.3 10^3/uL (1.8-7.7); NEUTROPHILS % 61.6 % (36.0-66.0); PLATELET COUNT, AUTOMATED 265 10^3/uL (150-450); RED BLOOD COUNT 5.61 10^6/uL (4.30-6.10); RED CELL DISTRIBUTION WIDTH 12.7 % (11.5-14.5); WHITE BLOOD COUNT 10.2 10^3/uL (4.0-10.0)
[2018-07-08 21:09] LABS: KETONE, URINE AUTO RFX NEGATIVE (NEGATIVE); LEUKOCYTE ESTERASE UR AUTO RFX NEGATIVE (NEGATIVE); NITRITE, URINE AUTO RFX NEGATIVE (NEGATIVE); RBC, URINE AUTO RFX 1 /HPF (0-3); SPECIFIC GRAVITY UR AUTO RFX 1.018 (1.002-1.035); SQUAM EPITHELIAL CELL UR AURFX 0 /HPF (0-6); WBC, URINE AUTO RFX 0 /HPF (0-3)
[2018-07-08] MEDS: KETOROLAC 30 MG/ML VIAL (J1885) IV (21:15)
[2018-07-08 21:28] LABS: ANION GAP 8 MEQ/L (8-16); BLOOD UREA NITROGEN 15 MG/DL (7-18); CALCIUM LEVEL 9.2 MG/DL (8.5-10.1); CARBON DIOXIDE LEVEL 27 MEQ/L (21-32); CHLORIDE LEVEL 107 MEQ/L (98-107); GLOMERULAR FILTRATION RATE > 60.0 (>60); GLUCOSE, FASTING 90 MG/DL (70-100); SODIUM LEVEL 142 MEQ/L (136-145)
== END 2018-07-08 22:41 | disposition home or self-care (01) ==
LOC: M ED 20:16
DX: K76.89 Other specified diseases of liver (principal); R10.9 Unspecified abdominal pain; Z88.8 Allergy status to other drugs, medicaments and biological substances
CPT/HCPCS: J2405

== ENCOUNTER 2018-07-16 14:20 | Emergency (ER) | payer OTHER ==
[2018-07-16] MEDS: BACLOFEN 10 MG TAB PO (16:45)
[2018-07-16] MEDS: NORCO, ANEXSIA 5/325MG TABLET (HYDROcodone/ACETAMINOPHEN) PO (16:45)
== END 2018-07-16 16:57 | disposition home or self-care (01) ==
LOC: M ED 14:20
DX: S16.1XXA Strain of muscle, fascia and tendon at neck level, initial encounter (principal); X58.XXXA Exposure to other specified factors, initial encounter; Y92.89 Other specified places as the place of occurrence of the external cause; I10 Essential (primary) hypertension; F20.9 Schizophrenia, unspecified; F31.9 Bipolar disorder, unspecified; F17.210 Nicotine dependence, cigarettes, uncomplicated; Z88.8 Allergy status to other drugs, medicaments and biological substances; Z79.899 Other long term (current) drug therapy
CPT/HCPCS: 93005

== ENCOUNTER → 2018-07-22 | Outpatient (REF) | payer OTHER | LOC: M LAB REF 17:08 | DX: J02.9 Acute pharyngitis, unspecified (principal) | CPT/HCPCS: 87070 ==

== ENCOUNTER 2018-07-23 03:28 | Emergency (ER) | payer OTHER ==
[2018-07-23] MEDS: ONDANSETRON 4 MG ORAL DISINTEGRATING TAB (Q0162 PER 1MG) PO (04:15)
[2018-07-23] MEDS: methylPREDNISolone INJ 125 MG/2 ML VIAL (J2930) IM (04:15)
[2018-07-23] MEDS: IPRATROPIUM 0.5MG/ALBUTEROL 2.5MG INH SOL UD 3ML (DUONEB)(J7620) NEB ×3 (04:36→05:28)
== END 2018-07-23 05:37 | disposition home or self-care (01) ==
LOC: M ED 03:28
DX: J40 Bronchitis, not specified as acute or chronic (principal); F17.200 Nicotine dependence, unspecified, uncomplicated; F98.9 Unspecified behavioral and emotional disorders with onset usually occurring in childhood and adolescence; Z88.8 Allergy status to other drugs, medicaments and biological substances; Z79.899 Other long term (current) drug therapy
CPT/HCPCS: Q0162

== ENCOUNTER → 2018-08-13 | Outpatient (CLI) | payer MEDICAID, SELFPAY, OTHER ==
[2018-08-14 14:23] LABS: RUBELLA IgG QUALITATIVE IMMUNE (IMMUNE)
[2018-08-15 08:06] LABS: RUBEOLA IgG ANTIBODY >300.0 AU/mL (Immune >29.9)
== END ==
LOC: M LAB 16:59
DX: Z02.1 Encounter for pre-employment examination (principal)
CPT/HCPCS: 86762

== ENCOUNTER 2018-08-14 20:43 | Emergency (ER) | payer MEDICAID ==
[2018-08-14] MEDS: BENZONATATE 100 MG CAP PO (22:11)
== END 2018-08-14 22:12 | disposition home or self-care (01) ==
LOC: M ED 20:43
DX: R05 Cough (principal); Z87.09 Personal history of other diseases of the respiratory system; F17.210 Nicotine dependence, cigarettes, uncomplicated; Z88.8 Allergy status to other drugs, medicaments and biological substances
CPT/HCPCS: 99282

== ENCOUNTER 2018-08-18 21:45 | Emergency (ER) | payer MEDICAID ==
[2018-08-19] MEDS: BACTRIM 160MG/800MG DS TAB PO (00:15)
[2018-08-19] MEDS: predniSONE 20 MG TAB PO (00:15)
== END 2018-08-19 00:26 | disposition home or self-care (01) ==
LOC: M ED 21:45
DX: J45.909 Unspecified asthma, uncomplicated (principal); L02.416 Cutaneous abscess of left lower limb; Z86.14 Personal history of Methicillin resistant Staphylococcus aureus infection; F31.9 Bipolar disorder, unspecified; F20.9 Schizophrenia, unspecified; F17.210 Nicotine dependence, cigarettes, uncomplicated; Z88.8 Allergy status to other drugs, medicaments and biological substances; Z88.6 Allergy status to analgesic agent; Z79.899 Other long term (current) drug therapy
CPT/HCPCS: 99283

== ENCOUNTER 2018-08-24 19:22 | Emergency (ER) | payer MEDICAID ==
[2018-08-24] MEDS: CLINDAMYCIN 150 MG CAP PO (21:48)
== END 2018-08-24 21:50 | disposition home or self-care (01) ==
LOC: M ED 19:22
DX: R05 Cough (principal); J45.909 Unspecified asthma, uncomplicated
CPT/HCPCS: 99283

== ENCOUNTER 2018-09-08 23:44 | Emergency (ER) | payer OTHER, MEDICAID ==
[2018-09-09] MEDS: predniSONE 20 MG TAB PO (01:43)
[2018-09-09] MEDS: BACLOFEN 10 MG TAB PO (01:43)
== END 2018-09-09 02:18 | disposition home or self-care (01) ==
LOC: M ED 23:44
DX: M62.830 Muscle spasm of back (principal); I10 Essential (primary) hypertension; Z72.0 Tobacco use; Z79.899 Other long term (current) drug therapy; Z88.6 Allergy status to analgesic agent; Z88.8 Allergy status to other drugs, medicaments and biological substances
CPT/HCPCS: 71101

== ENCOUNTER 2018-09-28 20:54 | Emergency (ER) | payer OTHER ==
[~2018-09-28] VITALS: Ht 177.8 cm; Wt 111.7 kg
[2018-09-28 20:54] VITALS: BP 177/103
[~2018-09-28 20:54] MED LIST changes: +ACET1TAB55 PO; +ACET500T15 PO; +ALPR1TAB3 PO; +AUGM500T34 PO; +BACL10TA2; +BACL10TA2 PO; +BACT800T5 PO; +CEPH500C; +CHERSYP3 PO; +CLEO300C2 PO; +DIPH25CA PO; +EPIN0.3I11; -EPIN0.3I6; +NORCOTAB PO; +OLAN5TAB PO; +OXYCOD/APAP; +PALI1TAB2 PO; -PANT20TA; +PANT20TA2; +QUET5TAB; +TRAZ-163; +TRAZ-163 PO; -ZOFR20TA PO; +ZOFR4TAB14 PO; +ZOFR4TAB16 PO; -ZOFR4TAB3 PO
[2018-09-28] MEDS ORDERED: PRED20TA PO (21:54)
[2018-09-28] MEDS: BACLOFEN 10 MG TAB PO ONE (21:55)
[2018-09-28] MEDS: predniSONE 20 MG TAB PO ONE (21:57)
--- NOTE | 2018-09-29 06:06 | ECGEPIP ---
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
== END 2018-09-28 22:10 | disposition home or self-care (01) ==
LOC: M ED 20:54
DX: S29.011A Strain of muscle and tendon of front wall of thorax, initial encounter (principal); Y99.9 Unspecified external cause status; J45.909 Unspecified asthma, uncomplicated; I10 Essential (primary) hypertension; F31.9 Bipolar disorder, unspecified; F20.9 Schizophrenia, unspecified

== ENCOUNTER 2018-10-19 18:23 | Emergency (ER) | payer OTHER ==
[~2018-10-19] VITALS: Ht 177.8 cm; Wt 113.6 kg
[2018-10-19 18:24] VITALS: BP 172/102
[2018-10-19] MEDS ORDERED: LAMO10TA PO (18:32)
[2018-10-19] MEDS ORDERED: TRAZ-163 PO (18:32)
[2018-10-19] MEDS ORDERED: XANA1TAB2 PO (18:32)
[2018-10-19] MEDS ORDERED: ALPRAZolam 0.25 MG TAB PO ONE (21:45)
== END 2018-10-19 21:53 | disposition home or self-care (01) ==
LOC: M ED 18:23
DX: Z76.0 Encounter for issue of repeat prescription (principal); F41.9 Anxiety disorder, unspecified

== ENCOUNTER 2018-10-24 03:39 | Emergency (ER) | payer OTHER ==
[~2018-10-24] VITALS: Ht 177.8 cm; Wt 112.7 kg
[~2018-10-24 03:39] MED LIST changes: +LAMO10TA PO
[2018-10-24] MEDS ORDERED: ALBUTEROL SULFATE 2.5 MG/0.5 ML INH NEB SOLN NEB ONE (06:45)
[2018-10-24] MEDS ORDERED: TESS100C PO (07:54)
[2018-10-24] MEDS ORDERED: PRED20TA PO (07:54)
[2018-10-24 08:05] VITALS: BP 150/70
--- NOTE | 2018-10-24 09:57 | REP ---
CHEST PA AND LATERAL: 10/24/2018. Comparison: PA chest 09/09/2018, PA and lateral 07/23/2018. Clinical history: Cough and dyspnea. Findings: Lung kelley are well inflated without pulmonary nodule, pleural thickening, apical scarring or pneumothorax. There is no dense consolidation with air bronchograms. Heart is not enlarged. Aorta and airway intact. The bony thorax shows no focal lesion. Impression: 1. No dense consolidation, pleural effusion, enlargement of the cardiac silhouette or other acute finding. Electronically Signed by Adam Newby MD 10/24/2018 01:21 P
== END 2018-10-24 08:05 | disposition home or self-care (01) ==
LOC: M ED 03:39
DX: J45.990 Exercise induced bronchospasm (principal); I10 Essential (primary) hypertension; F31.9 Bipolar disorder, unspecified; F20.9 Schizophrenia, unspecified; F17.200 Nicotine dependence, unspecified, uncomplicated; Z88.8 Allergy status to other drugs, medicaments and biological substances; Z79.899 Other long term (current) drug therapy

== ENCOUNTER 2019-03-14 12:26 | Emergency (ER) | payer MEDICAID, OTHER, SELFPAY ==
[~2019-03-14] VITALS: Ht 177.8 cm; Wt 112.7 kg
[2019-03-14 12:26] VITALS: BP 157/101
[~2019-03-14 12:26] MED LIST changes: +HYDR-3715 PO; +LAMO100T80 PO; -LAMO10TA PO; +METO1TAB63 PO; -METO25TAB PO; -NORCOTAB PO
[2019-03-14] MEDS ORDERED: SILVER SULFADIAZINE 1% CR 50 GM JAR TOP ONE (12:45)
[2019-03-14] MEDS ORDERED: SILV1CRE60 TOP (12:47)
== END 2019-03-14 13:00 | disposition home or self-care (01) ==
LOC: M ED 12:26
DX: T25.222A Burn of second degree of left foot, initial encounter (principal); T31.0 Burns involving less than 10% of body surface; X12.XXXA Contact with other hot fluids, initial encounter; Y92.099 Unspecified place in other non-institutional residence as the place of occurrence of the external cause; Y93.9 Activity, unspecified; Y99.9 Unspecified external cause status; Z79.899 Other long term (current) drug therapy; Z88.8 Allergy status to other drugs, medicaments and biological substances; Z88.6 Allergy status to analgesic agent

== ENCOUNTER 2019-03-25 21:59 | Emergency (ER) | payer MEDICAID, SELFPAY ==
[~2019-03-25] VITALS: Ht 177.8 cm; Wt 109.1 kg
[~2019-03-25 21:59] MED LIST changes: +SILV1CRE60 TOP
[2019-03-25 22:04] VITALS: BP 145/89
== END 2019-03-25 22:43 | disposition home or self-care (01) ==
LOC: M ED 21:59
DX: Z60.9 Problem related to social environment, unspecified (principal); F41.9 Anxiety disorder, unspecified; K55.1 Chronic vascular disorders of intestine; Z79.899 Other long term (current) drug therapy; Z88.8 Allergy status to other drugs, medicaments and biological substances; Z88.6 Allergy status to analgesic agent

== ENCOUNTER 2019-04-12 19:15 | Emergency (ER) | payer MEDICAID, SELFPAY ==
[~2019-04-12] VITALS: Ht 177.8 cm; Wt 107.0 kg
[2019-04-12 19:25] VITALS: BP 156/88
--- NOTE | 2019-04-13 | ECGEPIP ---
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
== END 2019-04-12 21:35 | disposition home or self-care (01) ==
LOC: M ED 19:15
DX: F43.0 Acute stress reaction (principal); Z63.4 Disappearance and death of family member; Z79.899 Other long term (current) drug therapy; Z86.14 Personal history of Methicillin resistant Staphylococcus aureus infection

== ENCOUNTER 2019-04-12 22:30 | Emergency (ER) | payer MEDICAID, SELFPAY ==
[~2019-04-12] VITALS: Ht 175.3 cm; Wt 115.0 kg
[2019-04-12 22:50] VITALS: BP 131/104
--- NOTE | 2019-04-13 09:51 | REP ---
Clinical: Trauma. Technique: Single lateral view of the cervical spine. Findings: Normal alignment is maintained from skull base to C7. No obvious acute fracture / compression injury or subluxation by single lateral view. Impression: Normal alignment. No obvious fracture. Electronically Signed by Bandar Ling MD 04/13/2019 09:43 A
--- NOTE | 2019-04-13 09:52 | REP ---
Clinical: Trauma. Technique: Single AP view of the abdomen and pelvis. Findings: Bowel gas pattern is nonspecific. Skeletal structures are intact. No organomegaly. No abnormal calcifications. No obvious free air. Impression: Normal abdominal radiograph. Electronically Signed by Bandar Ling MD 04/13/2019 09:44 A
--- NOTE | 2019-04-13 09:54 | REP ---
Clinical: Trauma . Comparison: 07/23/2018 . Findings: The mediastinum and cardiac silhouette are stable and within normal limits for portable technique. The lung kelley are clear without acute consolidation, effusion, or pneumothorax. Skeletal structures are intact. Impression: No acute cardiopulmonary process appreciated. Electronically Signed by Bandar Ling MD 04/13/2019 09:45 A
--- NOTE | 2019-04-14 03:30 | ECGEPIP ---
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
== END 2019-04-13 00:15 | disposition home or self-care (01) ==
LOC: M ED 22:30
DX: Z76.5 Malingerer [conscious simulation] (principal); Z79.899 Other long term (current) drug therapy; Z88.6 Allergy status to analgesic agent; Z88.8 Allergy status to other drugs, medicaments and biological substances

== ENCOUNTER 2019-08-05 21:58 | Emergency (ER) | payer MEDICAID ==
[~2019-08-05] VITALS: Ht 177.8 cm; Wt 101.6 kg
[~2019-08-05 21:58] MED LIST changes: -DIPH25CA PO; +DIPH25CA32 PO
[2019-08-05] MEDS ORDERED: MORPHINE 4 MG/ML 1ML VIAL/SYRINGE (J2270) IV ONE (22:45)
[2019-08-05] MEDS ORDERED: NS 1,000 ML IV ONE (22:45)
[2019-08-05] MEDS ORDERED: GASTROGRAFIN SOLUTION 30ML (Q9963) As Ordered ONE (23:08)
[2019-08-05 23:11] LABS: BASO # 0.1 10^3/uL (0.0-0.2); BASO % 0.7 % (0.0-1.0); EOS # 0.3 10^3/uL (0.0-0.5); EOS % 2.4 % (0.0-3.0); HEMATOCRIT 47.4 % (42.0-52.0); LYMPH # 2.8 10^3/uL (1.5-5.0); LYMPH % 24.5 % (24.0-44.0); MEAN CORPUSCULAR HEMOGLOBIN 28.9 pg (27.0-33.0); MEAN CORPUSCULAR HGB CONC 33.8 g/dl (32.0-36.5); MEAN CORPUSCULAR VOLUME 85.7 fl (80.0-96.0); MONO % 8.7 % (0.0-5.0); NEUTROPHILS # 7.2 10^3/uL (1.5-8.5); NEUTROPHILS % 63.5 % (36.0-66.0); PLATELET COUNT, AUTOMATED 250 10^3/uL (150-450); RED BLOOD COUNT 5.53 10^6/uL (4.30-6.10); WHITE BLOOD COUNT 11.4 10^3/uL (4.0-10.0)
[2019-08-05] MEDS: GASTROGRAFIN SOLUTION 30ML PO SCH ×2 (23:18→23:51)
[2019-08-05 23:26] LABS: INR 1.01
[2019-08-05 23:27] LABS: PARTIAL THROMBOPLASTIN TIME 33.8 SECONDS (25.0-38.4)
[2019-08-05 23:51] LABS: ALBUMIN 3.8 GM/DL (3.2-5.2); ALT/SGPT 27 U/L (12-78); BILIRUBIN,DIRECT < 0.1 MG/DL (0.0-0.2); BILIRUBIN,TOTAL 0.2 MG/DL (0.2-1.0); BLOOD UREA NITROGEN 10 MG/DL (7-18); CALCIUM LEVEL 8.8 MG/DL (8.5-10.1); CARBON DIOXIDE LEVEL 27 MEQ/L (21-32); CHLORIDE LEVEL 108 MEQ/L (98-107); CREATININE FOR GFR 0.86 MG/DL (0.70-1.30); GLOMERULAR FILTRATION RATE > 60.0 (>60); GLUCOSE, FASTING 88 MG/DL (70-100); LIPASE 142 U/L (73-393); POTASSIUM SERUM 3.9 MEQ/L (3.5-5.1); SODIUM LEVEL 142 MEQ/L (136-145); TOTAL PROTEIN 6.8 GM/DL (6.4-8.2)
[2019-08-05 23:54] LABS: AMORPHOUS SEDIMENT SMALL (NEGATIVE); APPEARANCE, URINE HAZY (CLEAR); BACTERIA, URINE AUTO NEGATIVE (NEGATIVE); BILIRUBIN, URINE AUTO NEGATIVE (NEGATIVE); BLOOD, URINE BLOOD NEGATIVE (NEGATIVE); COLOR, URINE YELLOW (YELLOW); GLUCOSE, URINE (UA) AUTO NEGATIVE (NEGATIVE); KETONE, URINE AUTO NEGATIVE (NEGATIVE); LEUKOCYTE ESTERASE, URINE AUTO NEGATIVE (NEGATIVE); MUCUS, URINE SMALL (NEGATIVE); NITRITE, URINE AUTO NEGATIVE (NEGATIVE); PROTEIN, URINE AUTO NEGATIVE (NEGATIVE); RBC, URINE AUTO 2 /HPF (0-3); SPECIFIC GRAVITY URINE AUTO 1.026 (1.002-1.035); SQUAMOUS EPITHELIAL CELL UR AU 0 /HPF (0-6); WBC, URINE AUTO 1 /HPF (0-3)
[2019-08-06] MEDS ORDERED: ISOVUE-370 76% 100ML VIAL (Q9967) As Ordered ONE (00:57)
[2019-08-06 02:00] VITALS: BP 136/76
--- NOTE | 2019-08-06 08:15 | REP ---
Clinical: Left lower quadrant pain. Comparison: 07/08/2018. Technique: Axial contrast enhanced images from the lung bases to the pubic symphysis using oral (per protocol) 100 ml Isovue 370 intravenous contrast material with coronal and sagittal re-formations. Findings: Diffuse fatty infiltration to the liver noted with focal rounded areas of fatty sparing confirmed by prior MRI. Spleen, pancreas, contracted gallbladder, bilateral adrenal glands and kidneys are normal. The enteric system demonstrates submucosal thickening to the distal ileum in the right lower quadrant and there is evidence for prior bowel surgery in the right upper quadrant. There is no evidence for obstruction or perforation and no ascites or drainable collection. Prior appendectomy suggested. Pelvis demonstrates normal bladder and age appropriate prostate/seminal vesicles. No ascites. No free air. No adenopathy. Abdominal aorta and vasculature appears normal. Impression: 1. Mild submucosal thickening of the distal ileum possibly suggesting ileitis and correlation is recommended. 2. Diffuse fatty infiltration of the liver with noted areas of fatty sparing . 3. No further acute abdominopelvic pathology appreciated. Electronically Signed by Bandar Ling MD 08/06/2019 08:07 A
== END 2019-08-06 02:09 | disposition home or self-care (01) ==
LOC: M ED 21:58
DX: K52.9 Noninfective gastroenteritis and colitis, unspecified (principal); K76.0 Fatty (change of) liver, not elsewhere classified; F31.9 Bipolar disorder, unspecified; J45.909 Unspecified asthma, uncomplicated; Z88.8 Allergy status to other drugs, medicaments and biological substances
CPT/HCPCS: 74177; 80048; 80076; 81001; 83605; 83690; 85025; 85610; 85730; 87086; 96361; 96374; 99284; J2270; Q9967

== ENCOUNTER 2019-08-08 00:43 | Emergency (ER) | payer MEDICAID ==
[~2019-08-08] VITALS: Ht 177.8 cm; Wt 109.1 kg
[2019-08-08 00:44] VITALS: BP 148/83
[2019-08-08] MEDS ORDERED: LIDOCAINE W/EPINEPHRINE 1% 20ML VIAL SC ONE (01:45)
[2019-08-08] MEDS ORDERED: BACT800T5 PO ×2 (01:53→02:01)
[2019-08-08] MEDS ORDERED: BACTRIM 160MG/800MG DS TAB PO ONE (02:00)
== END 2019-08-08 02:16 | disposition home or self-care (01) ==
LOC: M ED 00:43
DX: L02.214 Cutaneous abscess of groin (principal); I10 Essential (primary) hypertension; J45.909 Unspecified asthma, uncomplicated; F31.9 Bipolar disorder, unspecified; F20.9 Schizophrenia, unspecified; F17.210 Nicotine dependence, cigarettes, uncomplicated; Z88.8 Allergy status to other drugs, medicaments and biological substances; Z88.6 Allergy status to analgesic agent

== ENCOUNTER 2019-08-13 23:28 | Emergency (ER) | payer MEDICAID ==
[~2019-08-13] VITALS: Ht 177.8 cm; Wt 108.2 kg
[2019-08-13 23:29] VITALS: BP 163/91
[2019-08-13] MEDS ORDERED: FLON1SPR NARES (23:49)
[2019-08-13] MEDS ORDERED: MUCI30TA5 PO (23:49)
[2019-08-13] MEDS ORDERED: LORA-579 PO (23:49)
[2019-08-14] MEDS ORDERED: BENZONATATE 100 MG CAP PO ONE
== END 2019-08-14 00:06 | disposition home or self-care (01) ==
LOC: M ED 23:28
DX: J20.9 Acute bronchitis, unspecified (principal); Z88.8 Allergy status to other drugs, medicaments and biological substances

== ENCOUNTER 2023-03-13 21:27 | Observation (INO) | payer OTHER ==
[~2023-03-13] VITALS: Ht 182.9 cm; Wt 98.1 kg
[~2023-03-13 21:27] MED LIST changes: +ALBU2.5V10 INH; -ALBU83IN INH; +CYCL-707 PO; -CYCL10TA PO; +DIPH-435 PO; -DIPH25CA32 PO; +FLON1SPR NARES; -LISI-542 PO; +LISI5TAB11 PO; +LORA-579 PO; +MUCI30TA5 PO; +OLAN1TAB16 PO; -OLAN5TAB PO; -PANT20TA2; +PANT20TA6; +QUET50TA4; -QUET5TAB; -TRAZ-163; -TRAZ-163 PO; +TRAZ-257; +TRAZ-257 PO
[2023-03-13] MEDS ORDERED: MORPHINE 4 MG/ML 1ML VIAL IV ONE (23:05)
[2023-03-13] MEDS ORDERED: NS 1,000 ML IV ONE (23:05)
[2023-03-13] MEDS ORDERED: ONDANSETRON 4MG 2ML VIAL IV ONE (23:05)
[2023-03-13 23:14] LABS: RSV AMPLIFICATION NEGATIVE (NEGATIVE)
[2023-03-13 23:31] LABS: INR 0.96
[2023-03-13 23:33] LABS: LIPASE 34 U/L (12-53)
[2023-03-13 23:35] LABS: ALBUMIN 3.4 G/DL (3.2-5.2); ALKALINE PHOSPHATASE 73 U/L (46-116); ALT/SGPT 54 U/L (7.0-40); AST/SGOT 22 U/L (<34); BILIRUBIN,DIRECT < 0.1 MG/DL (<0.4); BILIRUBIN,TOTAL 0.2 MG/DL (0.3-1.2); BLOOD UREA NITROGEN 8 MG/DL (9-23); CALCIUM LEVEL 7.6 MG/DL (8.5-10.1); CARBON DIOXIDE LEVEL 22 MMOL/L (20-31); CHLORIDE LEVEL 110 MMOL/L (98-107); CK-MB VALUE MASS < 1.0 NG/ML (<3.6); GLOMERULAR FILTRATION RATE > 60.0 (>60); GLUCOSE, FASTING 82 MG/DL (60-100); POTASSIUM SERUM 3.7 MMOL/L (3.5-5.1); SODIUM LEVEL 141 MMOL/L (136-145)
[2023-03-13 23:39] LABS: CPK CREATINE PHOSPHOKINASE 81 U/L (46-171); MB/CK RELATIVE INDEX 1.23 (< OR =4)
[2023-03-14 00:11] LABS: BASO # 0.1 10^3/uL (0.0-0.2); BASO % 0.8 % (0.0-1.0); EOS # 0.2 10^3/uL (0.0-0.5); EOS % 1.7 % (0.0-3.0); HEMATOCRIT 46.9 % (42.0-52.0); HEMOGLOBIN 15.4 g/dl (13.5-17.5); LYMPH # 1.5 10^3/uL (1.5-5.0); LYMPH % 15.2 % (24.0-44.0); MEAN CORPUSCULAR HEMOGLOBIN 28.5 pg (27.0-33.0); MEAN CORPUSCULAR HGB CONC 32.8 g/dl (32.0-36.5); MEAN CORPUSCULAR VOLUME 86.7 fl (80.0-96.0); MONO # 0.9 10^3/uL (0.0-0.8); NEUTROPHILS % 72.4 % (36.0-66.0); PLATELET COUNT, AUTOMATED 159 10^3/uL (150-450); RED BLOOD COUNT 5.41 10^6/uL (4.30-6.10); WHITE BLOOD COUNT 9.7 10^3/uL (4.0-10.0)
[2023-03-14] MEDS ORDERED: ISOVUE-370 76% 100ML VIAL As Ordered ONE (00:27)
[2023-03-14] MEDS ORDERED: ACETAMINOPHEN 1000MG 100ML IV BAG IV ONE (00:45)
[2023-03-14] MEDS ORDERED: HOME MED LIST COMPLETE! XX SCH (02:20)
[2023-03-14] MEDS ORDERED: ONDANSETRON 4MG 2ML VIAL IV PRN (03:30)
[2023-03-14 04:20] VITALS: BP 144/82; TEMP 98.2; O2SAT 94
[2023-03-14] MEDS: LR 1,000 ML IV SCH ×2 (04:45→08:59)
[2023-03-14] MEDS: ACETAMINOPHEN *IV* 750 MG in IV 1 EA IV PRN ×2 (04:45→08:59)
[2023-03-14] MEDS: DOCUSATE SODIUM 100MG CAPSULE PO SCH ×2 (08:58→20:06)
[2023-03-14 09:32] LABS: BASO # 0.1 10^3/uL (0.0-0.2); BASO % 1.2 % (0.0-1.0); EOS # 0.3 10^3/uL (0.0-0.5); EOS % 2.9 % (0.0-3.0); HEMATOCRIT 46.1 % (42.0-52.0); HEMOGLOBIN 15.3 g/dl (13.5-17.5); LYMPH % 22.6 % (24.0-44.0); MEAN CORPUSCULAR HEMOGLOBIN 28.2 pg (27.0-33.0); MEAN CORPUSCULAR HGB CONC 33.2 g/dl (32.0-36.5); MEAN CORPUSCULAR VOLUME 85.1 fl (80.0-96.0); MONO # 0.9 10^3/uL (0.0-0.8); MONO % 9.5 % (2.0-8.0); NEUTROPHILS # 5.7 10^3/uL (1.5-8.5); NEUTROPHILS % 63.5 % (36.0-66.0); PLATELET COUNT, AUTOMATED 211 10^3/uL (150-450); RED BLOOD COUNT 5.42 10^6/uL (4.30-6.10)
[2023-03-14 10:04] LABS: BLOOD UREA NITROGEN 8 MG/DL (9-23); CARBON DIOXIDE LEVEL 25 MMOL/L (20-31); CHLORIDE LEVEL 104 MMOL/L (98-107); CREATININE FOR GFR 0.85 MG/DL (0.70-1.30); GLOMERULAR FILTRATION RATE > 60.0 (>60); GLUCOSE, FASTING 81 MG/DL (60-100); POTASSIUM SERUM 3.8 MMOL/L (3.5-5.1); SODIUM LEVEL 138 MMOL/L (136-145)
[2023-03-14] MEDS ORDERED: SENNA 8.6 MG TAB (SENOKOT) PO PRN (10:50)
[2023-03-14] MEDS ORDERED: ACETAMINOPHEN TAB 650MG DOSE (2X325MG) PO PRN (10:50)
[2023-03-14 11:07] LABS: IRON (FE) 78 UG/DL (65-175); PERCENT SATURATION 25.7 % (19.7-50.0); TOTAL IRON BINDING CAPACITY 303 UG/DL (250-425)
[2023-03-14 11:10] LABS: FERRITIN 85.8 NG/ML (10.5-307.3)
[2023-03-14] MEDS: PERCOCET 5MG/325MG TAB PO PRN ×2 (12:28→20:06)
[2023-03-14] MEDS ORDERED: OLANZapine 2.5MG TABLET PO PRN (13:55)
[2023-03-14 14:16] LABS: BLOOD UREA NITROGEN 7 MG/DL (9-23); CALCIUM LEVEL 8.5 MG/DL (8.5-10.1); CARBON DIOXIDE LEVEL 26 MMOL/L (20-31); CHLORIDE LEVEL 105 MMOL/L (98-107); CREATININE FOR GFR 0.84 MG/DL (0.70-1.30); GLOMERULAR FILTRATION RATE > 60.0 (>60); GLUCOSE, FASTING 133 MG/DL (60-100); POTASSIUM SERUM 3.7 MMOL/L (3.5-5.1); SODIUM LEVEL 138 MMOL/L (136-145)
[2023-03-14] MEDS: MIRALAX *UNIT DOSE* 17GM PACKET PO SCH ×2 (15:50→20:06)
[2023-03-14 15:55] LABS: HEPATITIS B SURFACE ANTIGEN NEGATIVE (NEGATIVE); HIV 1&2 SCREEN NEGATIVE (NEGATIVE)
[2023-03-14] MEDS ORDERED: MIRALAX *UNIT DOSE* 17GM PACKET PO ONE (18:00)
[2023-03-14 19:42] LABS: BLOOD UREA NITROGEN < 5 MG/DL (9-23); CALCIUM LEVEL 8.8 MG/DL (8.5-10.1); CARBON DIOXIDE LEVEL 25 MMOL/L (20-31); CHLORIDE LEVEL 105 MMOL/L (98-107); CREATININE FOR GFR 0.77 MG/DL (0.70-1.30); GLOMERULAR FILTRATION RATE > 60.0 (>60); GLUCOSE, FASTING 103 MG/DL (60-100); POTASSIUM SERUM 3.7 MMOL/L (3.5-5.1); SODIUM LEVEL 138 MMOL/L (136-145)
[2023-03-14 20:00] VITALS: BP 150/64; TEMP 98.1; O2SAT 96
[2023-03-14] MEDS: QUEtiapine FUMARATE 100 MG TAB PO PRN (20:06)
[2023-03-14 22:00] VITALS: BP 150/64; TEMP 98.1; O2SAT 96
[2023-03-15 01:56] LABS: BLOOD UREA NITROGEN 5 MG/DL (9-23); CALCIUM LEVEL 8.7 MG/DL (8.5-10.1); CARBON DIOXIDE LEVEL 26 MMOL/L (20-31); CHLORIDE LEVEL 105 MMOL/L (98-107); CREATININE FOR GFR 0.72 MG/DL (0.70-1.30); GLOMERULAR FILTRATION RATE > 60.0 (>60); GLUCOSE, FASTING 100 MG/DL (60-100); SODIUM LEVEL 137 MMOL/L (136-145)
[2023-03-15 06:00] VITALS: BP 131/96; TEMP 97.1; O2SAT 96
[2023-03-15 07:08] LABS: HEMATOCRIT 46.7 % (42.0-52.0); HEMOGLOBIN 15.2 g/dl (13.5-17.5); MEAN CORPUSCULAR HEMOGLOBIN 27.9 pg (27.0-33.0); MEAN CORPUSCULAR HGB CONC 32.5 g/dl (32.0-36.5); MEAN CORPUSCULAR VOLUME 85.8 fl (80.0-96.0); PLATELET COUNT, AUTOMATED 222 10^3/uL (150-450); RED BLOOD COUNT 5.44 10^6/uL (4.30-6.10); WHITE BLOOD COUNT 8.8 10^3/uL (4.0-10.0)
[2023-03-15 07:37] LABS: BLOOD UREA NITROGEN 6 MG/DL (9-23); CARBON DIOXIDE LEVEL 28 MMOL/L (20-31); CHLORIDE LEVEL 104 MMOL/L (98-107); CHOLESTEROL LEVEL 138 MG/DL (<200); CHOLESTEROL RISK RATIO 4.85 (<5); CREATININE FOR GFR 0.81 MG/DL (0.70-1.30); GLOMERULAR FILTRATION RATE > 60.0 (>60); GLUCOSE, FASTING 83 MG/DL (60-100); HDL CHOLESTEROL 28.4 MG/DL (>40); NON-HDL-C 109.6 MG/DL; POTASSIUM SERUM 4.1 MMOL/L (3.5-5.1); SODIUM LEVEL 139 MMOL/L (136-145); TRIGLYCERIDES LEVEL 138 MG/DL (<150)
[2023-03-15] MEDS: ENOXAPARIN 40MG/0.4ML SYRINGE (J1650 PER 10MG) SC SCH (09:00)
[2023-03-15] MEDS ORDERED: SENNA 8.6 MG TAB (SENOKOT) PO PRN (09:10)
[2023-03-15] MEDS ORDERED: MAGNESIUM CITRATE 300ML BTL PO ONE (09:10)
[2023-03-15] MEDS: LACTULOSE 20GM/30ML SYRUP UDC PO SCH ×2 (10:34→21:10)
[2023-03-15] MEDS: DOCUSATE SODIUM 100MG CAPSULE PO SCH ×2 (10:35→21:11)
[2023-03-15] MEDS: MIRALAX *UNIT DOSE* 17GM PACKET PO SCH ×2 (10:35→21:10)
[2023-03-15] MEDS: SENNA 8.6 MG TAB (SENOKOT) PO SCH ×2 (10:41→21:11)
[2023-03-15] MEDS: PERCOCET 5MG/325MG TAB PO PRN ×3 (10:43→21:11)
[2023-03-15 13:26] LABS: BLOOD UREA NITROGEN 7 MG/DL (9-23); CALCIUM LEVEL 8.6 MG/DL (8.5-10.1); CARBON DIOXIDE LEVEL 26 MMOL/L (20-31); CHLORIDE LEVEL 105 MMOL/L (98-107); CREATININE FOR GFR 0.77 MG/DL (0.70-1.30); GLOMERULAR FILTRATION RATE > 60.0 (>60); GLUCOSE, FASTING 135 MG/DL (60-100); SODIUM LEVEL 139 MMOL/L (136-145)
[2023-03-15 14:00] VITALS: BP 148/85; TEMP 97.5; O2SAT 96
[2023-03-15] MEDS: PANTOPRAZOLE 20 MG TAB PO SCH (18:19)
[2023-03-15 19:32] LABS: BLOOD UREA NITROGEN 7 MG/DL (9-23); CARBON DIOXIDE LEVEL 25 MMOL/L (20-31); CHLORIDE LEVEL 104 MMOL/L (98-107); CREATININE FOR GFR 0.73 MG/DL (0.70-1.30); GLOMERULAR FILTRATION RATE > 60.0 (>60); GLUCOSE, FASTING 140 MG/DL (60-100); POTASSIUM SERUM 4.1 MMOL/L (3.5-5.1); SODIUM LEVEL 137 MMOL/L (136-145)
[2023-03-15] MEDS: QUEtiapine FUMARATE 100 MG TAB PO PRN (21:11)
[2023-03-15 21:54] VITALS: BP 130/90; TEMP 97.2; O2SAT 97
[2023-03-16 01:28] LABS: BLOOD UREA NITROGEN 6 MG/DL (9-23); CALCIUM LEVEL 9.2 MG/DL (8.5-10.1); CARBON DIOXIDE LEVEL 27 MMOL/L (20-31); CHLORIDE LEVEL 104 MMOL/L (98-107); CREATININE FOR GFR 0.69 MG/DL (0.70-1.30); GLOMERULAR FILTRATION RATE > 60.0 (>60); GLUCOSE, FASTING 128 MG/DL (60-100); POTASSIUM SERUM 3.8 MMOL/L (3.5-5.1); SODIUM LEVEL 138 MMOL/L (136-145)
[2023-03-16 06:00] VITALS: BP 120/88; TEMP 97.1; O2SAT 96
[2023-03-16 06:15] LABS: HEMATOCRIT 47.2 % (42.0-52.0); HEMOGLOBIN 15.6 g/dl (13.5-17.5); MEAN CORPUSCULAR HEMOGLOBIN 28.4 pg (27.0-33.0); MEAN CORPUSCULAR HGB CONC 33.1 g/dl (32.0-36.5); PLATELET COUNT, AUTOMATED 222 10^3/uL (150-450); RED BLOOD COUNT 5.49 10^6/uL (4.30-6.10); WHITE BLOOD COUNT 7.3 10^3/uL (4.0-10.0)
[2023-03-16 06:46] LABS: BLOOD UREA NITROGEN 7 MG/DL (9-23); CARBON DIOXIDE LEVEL 24 MMOL/L (20-31); CHLORIDE LEVEL 104 MMOL/L (98-107); CREATININE FOR GFR 0.76 MG/DL (0.70-1.30); GLOMERULAR FILTRATION RATE > 60.0 (>60); GLUCOSE, FASTING 112 MG/DL (60-100); POTASSIUM SERUM 3.9 MMOL/L (3.5-5.1); SODIUM LEVEL 138 MMOL/L (136-145)
[2023-03-16] MEDS: PERCOCET 5MG/325MG TAB PO PRN ×3 (07:30→23:16)
[2023-03-16] MEDS: ENOXAPARIN 40MG/0.4ML SYRINGE (J1650 PER 10MG) SC SCH (09:00)
[2023-03-16] MEDS: MIRALAX *UNIT DOSE* 17GM PACKET PO SCH ×2 (09:46→20:01)
[2023-03-16] MEDS: SENNA 8.6 MG TAB (SENOKOT) PO SCH ×2 (09:46→20:01)
[2023-03-16] MEDS: PANTOPRAZOLE 20 MG TAB PO SCH (09:46)
[2023-03-16] MEDS: LACTULOSE 20GM/30ML SYRUP UDC PO SCH ×2 (09:46→20:01)
[2023-03-16] MEDS: DOCUSATE SODIUM 100MG CAPSULE PO SCH ×2 (09:46→20:02)
[2023-03-16 14:00] VITALS: BP 144/93; TEMP 97.9; O2SAT 97
[2023-03-16] MEDS: QUEtiapine FUMARATE 100 MG TAB PO PRN (20:01)
[2023-03-16 22:00] VITALS: BP 168/90; TEMP 97.8; O2SAT 98
[2023-03-17] MEDS ORDERED: ACETAMINOPHEN 1000MG 100ML IV BAG IV ONE (01:15)
[2023-03-17 01:30] VITALS: BP 150/82; TEMP 97.6; O2SAT 98
[2023-03-17 02:22] VITALS: BP 140/80; TEMP 98.6; O2SAT 97
[2023-03-17 06:00] VITALS: BP 126/82; TEMP 97.6; O2SAT 97
[2023-03-17 07:14] LABS: HEMATOCRIT 49.4 % (42.0-52.0); HEMOGLOBIN 16.5 g/dl (13.5-17.5); MEAN CORPUSCULAR HEMOGLOBIN 28.5 pg (27.0-33.0); MEAN CORPUSCULAR HGB CONC 33.4 g/dl (32.0-36.5); MEAN CORPUSCULAR VOLUME 85.3 fl (80.0-96.0); PLATELET COUNT, AUTOMATED 224 10^3/uL (150-450); RED BLOOD COUNT 5.79 10^6/uL (4.30-6.10); WHITE BLOOD COUNT 8.5 10^3/uL (4.0-10.0)
[2023-03-17] MEDS: PERCOCET 5MG/325MG TAB PO PRN ×3 (07:21→23:35)
[2023-03-17] MEDS: ENOXAPARIN 40MG/0.4ML SYRINGE (J1650 PER 10MG) SC SCH (09:00)
[2023-03-17] MEDS: LACTULOSE 20GM/30ML SYRUP UDC PO SCH ×2 (09:00→20:41)
[2023-03-17] MEDS: PANTOPRAZOLE 20 MG TAB PO SCH (09:58)
[2023-03-17] MEDS: SENNA 8.6 MG TAB (SENOKOT) PO SCH ×2 (09:59→20:41)
[2023-03-17] MEDS: DOCUSATE SODIUM 100MG CAPSULE PO SCH ×2 (09:59→20:40)
[2023-03-17] MEDS: MIRALAX *UNIT DOSE* 17GM PACKET PO SCH ×2 (09:59→20:41)
[2023-03-17 14:00] VITALS: BP 118/62; TEMP 97.3; O2SAT 97
[2023-03-17] MEDS ORDERED: fentaNYL 100 MCG/2 ML INJECTION As Ordered ONE ×2 (19:16→19:36)
[2023-03-17] MEDS ORDERED: LIDOCAINE 2% 100MG/5ML SDV (FOR ANES.) As Ordered ONE (19:16)
[2023-03-17] MEDS ORDERED: propofoL 200 MG/20 ML VIAL As Ordered ONE ×3 (19:16→19:39)
[2023-03-17] MEDS: QUEtiapine FUMARATE 100 MG TAB PO PRN (20:40)
[2023-03-17] MEDS: BISACODYL 5MG TAB PO SCH (20:41)
[2023-03-17 21:45] VITALS: BP 127/78; TEMP 97.5; O2SAT 98
[2023-03-17 22:19] VITALS: BP 123/66; TEMP 97.5; O2SAT 95
[2023-03-18 00:15] VITALS: BP 121/81; TEMP 97.5; O2SAT 97
[2023-03-18] MEDS ORDERED: ONDANSETRON 4MG TAB PO PRN (00:35)
[2023-03-18 02:07] VITALS: BP 132/81; TEMP 97.7; O2SAT 98
[2023-03-18] MEDS ORDERED: PERCOCET 5MG/325MG TAB PO ONE (02:44)
[2023-03-18] MEDS ORDERED: MAALOX 30 ML SUSP *UDC PO ONE (03:00)
[2023-03-18] MEDS ORDERED: PERCOCET 5MG/325MG TAB As Ordered ONE (03:14)
[2023-03-18] MEDS ORDERED: MAALOX 30 ML SUSP *UDC As Ordered ONE (03:14)
[2023-03-18 04:22] LABS: HEMATOCRIT 47.6 % (42.0-52.0); HEMOGLOBIN 15.9 g/dl (13.5-17.5); MEAN CORPUSCULAR HEMOGLOBIN 28.1 pg (27.0-33.0); MEAN CORPUSCULAR HGB CONC 33.4 g/dl (32.0-36.5); MEAN CORPUSCULAR VOLUME 84.1 fl (80.0-96.0); PLATELET COUNT, AUTOMATED 218 10^3/uL (150-450); RED BLOOD COUNT 5.66 10^6/uL (4.30-6.10); WHITE BLOOD COUNT 14.2 10^3/uL (4.0-10.0)
[2023-03-18 04:42] LABS: ALBUMIN 3.6 G/DL (3.2-5.2); ALKALINE PHOSPHATASE 79 U/L (46-116); ALT/SGPT 38 U/L (7.0-40); AST/SGOT 16 U/L (<34); BILIRUBIN,TOTAL 0.3 MG/DL (0.3-1.2); BLOOD UREA NITROGEN 13 MG/DL (9-23); CALCIUM LEVEL 9.1 MG/DL (8.5-10.1); CARBON DIOXIDE LEVEL 25 MMOL/L (20-31); CHLORIDE LEVEL 102 MMOL/L (98-107); CREATININE FOR GFR 0.91 MG/DL (0.70-1.30); GLOMERULAR FILTRATION RATE > 60.0 (>60); GLUCOSE, FASTING 81 MG/DL (60-100); SODIUM LEVEL 135 MMOL/L (136-145); TOTAL PROTEIN 6.4 G/DL (5.7-8.2)
[2023-03-18 06:31] VITALS: BP 127/79; TEMP 98.1; O2SAT 98
[2023-03-18] MEDS ORDERED: NS 1,000 ML IV SCH (07:35)
[2023-03-18 08:50] LABS: BLOOD UREA NITROGEN 12 MG/DL (9-23); CALCIUM LEVEL 9.1 MG/DL (8.5-10.1); CARBON DIOXIDE LEVEL 26 MMOL/L (20-31); CHLORIDE LEVEL 100 MMOL/L (98-107); CREATININE FOR GFR 0.83 MG/DL (0.70-1.30); GLOMERULAR FILTRATION RATE > 60.0 (>60); GLUCOSE, FASTING 74 MG/DL (60-100); SODIUM LEVEL 135 MMOL/L (136-145)
[2023-03-18] MEDS: DOCUSATE SODIUM 100MG CAPSULE PO SCH (08:54)
[2023-03-18] MEDS: LACTULOSE 20GM/30ML SYRUP UDC PO SCH (08:54)
[2023-03-18] MEDS: BISACODYL 5MG TAB PO SCH (08:54)
[2023-03-18] MEDS: MIRALAX *UNIT DOSE* 17GM PACKET PO SCH (08:55)
[2023-03-18] MEDS: PANTOPRAZOLE 20 MG TAB PO SCH (08:55)
[2023-03-18] MEDS: SENNA 8.6 MG TAB (SENOKOT) PO SCH (08:55)
[2023-03-18] MEDS ORDERED: ENOXAPARIN 40MG/0.4ML SYRINGE (J1650 PER 10MG) SC SCH (09:00)
[2023-03-18] MEDS: PERCOCET 5MG/325MG TAB PO PRN (10:07)
[2023-03-18 10:30] VITALS: BP 135/81; TEMP 98.2; O2SAT 94
[2023-03-18] MEDS ORDERED: BISACODYL 10MG SUPP PR ONE (14:40)
[2023-03-18] MEDS ORDERED: DULC10SU2 PR (15:20)
[2023-03-18] MEDS ORDERED: PANT20TA6 PO (15:20)
[2023-03-18] MEDS ORDERED: QUET100T2 PO (15:20)
[2023-03-18] MEDS ORDERED: COLA100C5 PO (15:20)
[2023-03-18] MEDS ORDERED: LACT20EL PO (15:20)
[2023-03-18] MEDS ORDERED: MIRA1POW3 PO (15:20)
[2023-03-18] MEDS ORDERED: SENN-111 PO (15:20)
[2023-03-18 15:30] VITALS: BP 160/82
== END 2023-03-18 15:50 | disposition other institution (70) ==
LOC: M ED 21:27 → M ED INP 21:28 → M MS5PR 03-14 04:29
PROVIDERS: ADMIT Internal Medicine; ATTEND Internal Medicine
DX: T18.3XXA Foreign body in small intestine, initial encounter (principal); T18.2XXA Foreign body in stomach, initial encounter; Y92.148 Other place in prison as the place of occurrence of the external cause; K29.70 Gastritis, unspecified, without bleeding; Z98.0 Intestinal bypass and anastomosis status; R10.12 Left upper quadrant pain; R07.89 Other chest pain; D72.829 Elevated white blood cell count, unspecified; E87.1 Hypo-osmolality and hyponatremia; F20.9 Schizophrenia, unspecified; K55.1 Chronic vascular disorders of intestine; Z81.8 Family history of other mental and behavioral disorders; Z91.51 Personal history of suicidal behavior; Z90.49 Acquired absence of other specified parts of digestive tract
CPT/HCPCS: 36415; 43247; 74018; 74019; 74021; 74177; 80048; 80053; 80061; 80076; 82271; 82550; 82553; 82728; 83550; 83690; 84484; 85025; 85027; 85610; 86803; 87340; 87389; 87631; 87641; 93005; 93041; 94760; 96374; 96375; 96376; 99285; J0131; J2405; J3010; Q9967

== ENCOUNTER → 2023-03-21 | Outpatient (CLI) | payer OTHER ==
[~2023-03-21] MED LIST changes: +AMLO1TAB25 PO; +COLA100C5 PO; +DOCU100C16 PO; +DOK100TA2 PO; +DULC10SU2 PR; +LACT20EL PO; +MIRA1POW3 PO; +MIRA3350 PO; +OLAN5ZYD PO; +PANT20TA51 PO; +PANT20TA6 PO; +PANT40TA29 PO; +QUET100T2 PO; +QUET1TAB17 PO; +QUET200T2 PO; +SENN-111 PO; +SENN-186 PO; +SUCR1TA PO; +TRAZ-252 PO
== END ==
LOC: M RAD 09:22
PROVIDERS: ATTEND Internal Medicine
DX: T18.8XXA Foreign body in other parts of alimentary tract, initial encounter (principal)

== ENCOUNTER 2023-03-22 18:28 | Inpatient (IN) | payer OTHER ==
[~2023-03-22] VITALS: Ht 177.8 cm; Wt 99.1 kg
[~2023-03-22 18:28] MED LIST changes: -AMLO1TAB25 PO; -DOCU100C16 PO; -DOK100TA2 PO; -MIRA3350 PO; -OLAN5ZYD PO; -PANT20TA51 PO; -PANT40TA29 PO; -QUET1TAB17 PO; -QUET200T2 PO; -SENN-186 PO; -SUCR1TA PO; -TRAZ-252 PO
[2023-03-22 20:04] LABS: BASO # 0.1 10^3/uL (0.0-0.2); EOS # 0.1 10^3/uL (0.0-0.5); EOS % 0.6 % (0.0-3.0); HEMATOCRIT 50.1 % (42.0-52.0); HEMOGLOBIN 16.5 g/dl (13.5-17.5); LYMPH # 1.2 10^3/uL (1.5-5.0); LYMPH % 12.7 % (24.0-44.0); MEAN CORPUSCULAR HEMOGLOBIN 28.1 pg (27.0-33.0); MEAN CORPUSCULAR HGB CONC 32.9 g/dl (32.0-36.5); MEAN CORPUSCULAR VOLUME 85.2 fl (80.0-96.0); MONO # 0.6 10^3/uL (0.0-0.8); MONO % 6.4 % (2.0-8.0); NEUTROPHILS # 7.3 10^3/uL (1.5-8.5); NEUTROPHILS % 78.9 % (36.0-66.0); PLATELET COUNT, AUTOMATED 273 10^3/uL (150-450); RED BLOOD COUNT 5.88 10^6/uL (4.30-6.10); WHITE BLOOD COUNT 9.3 10^3/uL (4.0-10.0)
[2023-03-22 20:27] LABS: ETHYL ALCOHOL (ETHANOL) < 0.003 % (0.000-0.010)
[2023-03-22 20:28] LABS: SALICYLATE LEVEL < 3.0 MG/DL (<30)
[2023-03-22 20:29] LABS: ACETAMINOPHEN LEVEL < 2.0 UG/ML (10.0-20.0); ALBUMIN 4.2 G/DL (3.2-5.2); ALKALINE PHOSPHATASE 86 U/L (46-116); ALT/SGPT 52 U/L (7.0-40); AST/SGOT 19 U/L (<34); BILIRUBIN,DIRECT < 0.1 MG/DL (<0.4); BILIRUBIN,TOTAL 0.3 MG/DL (0.3-1.2); BLOOD UREA NITROGEN 10 MG/DL (9-23); CARBON DIOXIDE LEVEL 27 MMOL/L (20-31); CHLORIDE LEVEL 102 MMOL/L (98-107); CPK CREATINE PHOSPHOKINASE 69 U/L (46-171); CREATININE FOR GFR 0.86 MG/DL (0.70-1.30); GLOMERULAR FILTRATION RATE > 60.0 (>60); GLUCOSE, FASTING 109 MG/DL (60-100); POTASSIUM SERUM 4.6 MMOL/L (3.5-5.1); SODIUM LEVEL 138 MMOL/L (136-145); TOTAL PROTEIN 7.4 G/DL (5.7-8.2)
[2023-03-22 20:30] LABS: THYROID STIMULATING HORMONE 1.488 uIU/ML (0.55-4.78)
[2023-03-22 21:11] LABS: AMPHETAMINES LEVEL URINE NEGATIVE (NEGATIVE)
[2023-03-22 21:12] LABS: BARBITURATES URINE NEGATIVE (NEGATIVE); BENZODIAZEPINES URINE NEGATIVE (NEGATIVE); COCAINE METABOLITE URINE NEGATIVE (NEGATIVE); METHADONE URINE NEGATIVE (NEGATIVE); OPIATES URINE NEGATIVE (NEGATIVE)
[2023-03-22 21:13] LABS: CANNABINOIDS URINE NEGATIVE (NEGATIVE); PHENCYCLIDINE URINE NEGATIVE (NEGATIVE)
[2023-03-22 22:16] LABS: RSV AMPLIFICATION NEGATIVE (NEGATIVE)
[2023-03-22] MEDS ORDERED: SENN-186 PO (22:34)
[2023-03-22] MEDS ORDERED: QUET100T2 PO (22:34)
[2023-03-22] MEDS ORDERED: DOK100TA2 PO (22:34)
[2023-03-22] MEDS ORDERED: PANT20TA51 PO (22:34)
[2023-03-22] MEDS ORDERED: DOCU100C16 PO (22:34)
[2023-03-22] MEDS ORDERED: MIRA3350 PO (22:34)
[2023-03-22] MEDS ORDERED: LACT20EL PO (22:34)
[2023-03-22] MEDS ORDERED: HOME MED LIST COMPLETE! XX SCH (22:35)
[2023-03-23] MEDS: ACETAMINOPHEN TAB 650MG DOSE (2X325MG) PO PRN ×2 (01:08→07:25)
[2023-03-23 06:43] VITALS: BP 137/102; TEMP 97.8; O2SAT 98
[2023-03-23 07:17] VITALS: BP 101/84; TEMP 98; O2SAT 95
[2023-03-23 08:07] LABS: HEMATOCRIT 47.2 % (42.0-52.0); HEMOGLOBIN 15.8 g/dl (13.5-17.5); MEAN CORPUSCULAR HEMOGLOBIN 28.1 pg (27.0-33.0); MEAN CORPUSCULAR HGB CONC 33.5 g/dl (32.0-36.5); MEAN CORPUSCULAR VOLUME 83.8 fl (80.0-96.0); PLATELET COUNT, AUTOMATED 277 10^3/uL (150-450); RED BLOOD COUNT 5.63 10^6/uL (4.30-6.10); WHITE BLOOD COUNT 9.1 10^3/uL (4.0-10.0)
[2023-03-23] MEDS: MIRALAX *UNIT DOSE* 17GM PACKET PO SCH (08:17)
[2023-03-23] MEDS: DOCUSATE SODIUM 100MG CAPSULE PO SCH ×2 (08:18→20:29)
[2023-03-23] MEDS: ENOXAPARIN 40MG/0.4ML SYRINGE (J1650 PER 10MG) SC SCH ×2 (08:18→08:22)
[2023-03-23 08:54] LABS: ALBUMIN 3.9 G/DL (3.2-5.2); ALKALINE PHOSPHATASE 78 U/L (46-116); ALT/SGPT 45 U/L (7.0-40); AST/SGOT 18 U/L (<34); BILIRUBIN,TOTAL 0.6 MG/DL (0.3-1.2); BLOOD UREA NITROGEN 10 MG/DL (9-23); CALCIUM LEVEL 9.5 MG/DL (8.5-10.1); CARBON DIOXIDE LEVEL 26 MMOL/L (20-31); CHLORIDE LEVEL 104 MMOL/L (98-107); GLOMERULAR FILTRATION RATE > 60.0 (>60); GLUCOSE, FASTING 85 MG/DL (60-100); SODIUM LEVEL 140 MMOL/L (136-145); TOTAL PROTEIN 6.7 G/DL (5.7-8.2)
[2023-03-23] MEDS ORDERED: PANTOPRAZOLE 20 MG TAB PO SCH (09:00)
[2023-03-23] MEDS: PANTOPRAZOLE 40MG VIAL IV SCH ×2 (09:00→20:29)
[2023-03-23 11:48] VITALS: BP 135/86; TEMP 98.3; O2SAT 96
[2023-03-23] MEDS ORDERED: KETOROLAC 30 MG/ML 1ML VIAL IV ONE (12:00)
[2023-03-23] MEDS ORDERED: MORPHINE 2 MG/ML 1ML VIAL IV ONE ×4 (12:15→22:00)
[2023-03-23] MEDS: ACETAMINOPHEN 500 MG TAB PO SCH ×3 (12:22→23:48)
[2023-03-23] MEDS: SUCRALFATE 1 GM TAB PO SCH ×3 (12:22→20:29)
[2023-03-23 15:50] VITALS: BP 114/83; TEMP 98; O2SAT 93
[2023-03-23 18:32] LABS: HEMATOCRIT 48.4 % (42.0-52.0); MEAN CORPUSCULAR HGB CONC 33.1 g/dl (32.0-36.5); MEAN CORPUSCULAR VOLUME 84.8 fl (80.0-96.0); PLATELET COUNT, AUTOMATED 276 10^3/uL (150-450); RED BLOOD COUNT 5.71 10^6/uL (4.30-6.10); WHITE BLOOD COUNT 9.2 10^3/uL (4.0-10.0)
[2023-03-23 18:34] VITALS: BP 153/112; O2SAT 85
[2023-03-23 20:30] VITALS: BP 144/106; TEMP 97.5; O2SAT 97
[2023-03-24] VITALS (13 sets, daily range): BP systolic 110–165; BP diastolic 64–123; PULSE 93; TEMP 97.3–98.6; O2SAT 92–98
[2023-03-24 00:50] LABS: HEMATOCRIT 48.7 % (42.0-52.0); HEMOGLOBIN 16.2 g/dl (13.5-17.5); MEAN CORPUSCULAR HGB CONC 33.3 g/dl (32.0-36.5); MEAN CORPUSCULAR VOLUME 84.3 fl (80.0-96.0); PLATELET COUNT, AUTOMATED 306 10^3/uL (150-450); RED BLOOD COUNT 5.78 10^6/uL (4.30-6.10)
[2023-03-24 01:39] LABS: ALBUMIN 4.2 G/DL (3.2-5.2); ALKALINE PHOSPHATASE 82 U/L (46-116); ALT/SGPT 46 U/L (7.0-40); AST/SGOT 15 U/L (<34); BILIRUBIN,TOTAL 0.5 MG/DL (0.3-1.2); BLOOD UREA NITROGEN 12 MG/DL (9-23); CARBON DIOXIDE LEVEL 25 MMOL/L (20-31); CHLORIDE LEVEL 104 MMOL/L (98-107); GLOMERULAR FILTRATION RATE > 60.0 (>60); GLUCOSE, FASTING 97 MG/DL (60-100); POTASSIUM SERUM 4.4 MMOL/L (3.5-5.1); SODIUM LEVEL 137 MMOL/L (136-145); TOTAL PROTEIN 7.3 G/DL (5.7-8.2)
[2023-03-24 04:14] LABS: BASO # 0.1 10^3/uL (0.0-0.2); BASO % 1.4 % (0.0-1.0); EOS # 0.2 10^3/uL (0.0-0.5); EOS % 1.9 % (0.0-3.0); HEMATOCRIT 47.1 % (42.0-52.0); HEMOGLOBIN 15.7 g/dl (13.5-17.5); LYMPH % 24.4 % (24.0-44.0); MEAN CORPUSCULAR HGB CONC 33.3 g/dl (32.0-36.5); MEAN CORPUSCULAR VOLUME 84.1 fl (80.0-96.0); MONO # 0.6 10^3/uL (0.0-0.8); MONO % 7.8 % (2.0-8.0); NEUTROPHILS # 5.1 10^3/uL (1.5-8.5); NEUTROPHILS % 64.1 % (36.0-66.0); PLATELET COUNT, AUTOMATED 283 10^3/uL (150-450)
[2023-03-24 04:38] LABS: BLOOD UREA NITROGEN 12 MG/DL (9-23); CALCIUM LEVEL 9.7 MG/DL (8.5-10.1); CARBON DIOXIDE LEVEL 26 MMOL/L (20-31); CHLORIDE LEVEL 105 MMOL/L (98-107); CREATININE FOR GFR 0.85 MG/DL (0.70-1.30); GLOMERULAR FILTRATION RATE > 60.0 (>60); GLUCOSE, FASTING 88 MG/DL (60-100); POTASSIUM SERUM 4.2 MMOL/L (3.5-5.1); SODIUM LEVEL 138 MMOL/L (136-145)
[2023-03-24] MEDS: ACETAMINOPHEN 500 MG TAB PO SCH ×3 (05:52→17:39)
[2023-03-24] MEDS ORDERED: MORPHINE 2 MG/ML 1ML VIAL IV ONE (08:00)
[2023-03-24] MEDS: MIRALAX *UNIT DOSE* 17GM PACKET PO SCH (08:13)
[2023-03-24] MEDS: DOCUSATE SODIUM 100MG CAPSULE PO SCH ×2 (08:15→20:26)
[2023-03-24] MEDS: SUCRALFATE 1 GM TAB PO SCH ×4 (08:15→20:26)
[2023-03-24] MEDS ORDERED: PANTOPRAZOLE 40MG TAB (PROTONIX) PO SCH (09:00)
[2023-03-24] MEDS: ONDANSETRON 4MG ORAL DISINTEGRATING TAB SL PRN ×2 (09:48→17:23)
[2023-03-24] MEDS ORDERED: ISOVUE-370 76% 100ML VIAL As Ordered ONE (09:57)
[2023-03-24] MEDS ORDERED: PERCOCET 5MG/325MG TAB PO ONE ×2 (11:15→16:10)
[2023-03-24] MEDS ORDERED: LIDOCAINE 2% 100MG/5ML SDV (FOR ANES.) As Ordered ONE (18:29)
[2023-03-24] MEDS ORDERED: propofoL 200 MG/20 ML VIAL As Ordered ONE (18:29)
[2023-03-24] MEDS ORDERED: fentaNYL 100 MCG/2 ML INJECTION IV PRN (18:50)
[2023-03-24] MEDS ORDERED: LR 1,000 ML IV SCH (18:50)
[2023-03-24] MEDS ORDERED: ONDANSETRON 4MG 2ML VIAL IV PRN (18:50)
[2023-03-24] MEDS ORDERED: oxyCODONE 5MG TAB PO PRN (18:50)
[2023-03-24] MEDS ORDERED: METOCLOPRAMIDE INJ 10MG/2ML VIAL IV PRN (18:50)
[2023-03-24] MEDS: PANTOPRAZOLE 40MG VIAL IV SCH (20:26)
[2023-03-25] MEDS: ACETAMINOPHEN 500 MG TAB PO SCH ×5 (00:20→23:33)
[2023-03-25 05:34] LABS: BASO # 0.1 10^3/uL (0.0-0.2); BASO % 1.3 % (0.0-1.0); EOS # 0.2 10^3/uL (0.0-0.5); EOS % 2.6 % (0.0-3.0); HEMATOCRIT 46.2 % (42.0-52.0); HEMOGLOBIN 15.6 g/dl (13.5-17.5); LYMPH # 1.9 10^3/uL (1.5-5.0); LYMPH % 23.1 % (24.0-44.0); MEAN CORPUSCULAR HEMOGLOBIN 28.4 pg (27.0-33.0); MEAN CORPUSCULAR HGB CONC 33.8 g/dl (32.0-36.5); MEAN CORPUSCULAR VOLUME 84.2 fl (80.0-96.0); MONO # 0.6 10^3/uL (0.0-0.8); MONO % 6.8 % (2.0-8.0); NEUTROPHILS # 5.5 10^3/uL (1.5-8.5); NEUTROPHILS % 65.8 % (36.0-66.0); PLATELET COUNT, AUTOMATED 294 10^3/uL (150-450); RED BLOOD COUNT 5.49 10^6/uL (4.30-6.10); WHITE BLOOD COUNT 8.4 10^3/uL (4.0-10.0)
[2023-03-25 05:56] LABS: BLOOD UREA NITROGEN 7 MG/DL (9-23); CARBON DIOXIDE LEVEL 27 MMOL/L (20-31); CHLORIDE LEVEL 102 MMOL/L (98-107); CREATININE FOR GFR 0.78 MG/DL (0.70-1.30); GLOMERULAR FILTRATION RATE > 60.0 (>60); GLUCOSE, FASTING 88 MG/DL (60-100); POTASSIUM SERUM 3.9 MMOL/L (3.5-5.1); SODIUM LEVEL 138 MMOL/L (136-145)
[2023-03-25 06:00] VITALS: BP 148/90; TEMP 98; O2SAT 96
[2023-03-25 08:00] VITALS: BP 168/121; TEMP 98.4; O2SAT 98
[2023-03-25] MEDS: SUCRALFATE 1 GM TAB PO SCH ×4 (08:11→20:31)
[2023-03-25] MEDS: DOCUSATE SODIUM 100MG CAPSULE PO SCH ×2 (08:13→20:30)
[2023-03-25] MEDS: MIRALAX *UNIT DOSE* 17GM PACKET PO SCH (08:14)
[2023-03-25] MEDS: PANTOPRAZOLE 40MG VIAL IV SCH (08:14)
[2023-03-25] MEDS: PANTOPRAZOLE 40MG TAB (PROTONIX) PO SCH ×2 (09:00→20:30)
[2023-03-25 10:41] LABS: APPEARANCE, URINE CLEAR (CLEAR); BACTERIA, URINE AUTO NEGATIVE (NEGATIVE); BILIRUBIN, URINE AUTO NEGATIVE (NEGATIVE); BLOOD, URINE BLOOD NEGATIVE (NEGATIVE); COLOR, URINE STRAW (YELLOW); GLUCOSE, URINE (UA) AUTO NEGATIVE (NEGATIVE); KETONE, URINE AUTO NEGATIVE (NEGATIVE); LEUKOCYTE ESTERASE, URINE AUTO NEGATIVE (NEGATIVE); NITRITE, URINE AUTO NEGATIVE (NEGATIVE); PROTEIN, URINE AUTO NEGATIVE (NEGATIVE); RBC, URINE AUTO 0 /HPF (0-3); SPECIFIC GRAVITY URINE AUTO 1.003 (1.002-1.035); SQUAMOUS EPITHELIAL CELL UR AU 0 /HPF (0-6); UROBILINOGEN, URINE AUTO 0.2 mg/dL (0.0-2.0); WBC, URINE AUTO 0 /HPF (0-3)
[2023-03-25 15:00] VITALS: BP 154/109
[2023-03-25] MEDS: ENOXAPARIN 40MG/0.4ML SYRINGE (J1650 PER 10MG) SC SCH (17:23)
[2023-03-25 22:00] VITALS: BP 140/70
[2023-03-25] MEDS ORDERED: QUEtiapine FUMARATE 100 MG TAB PO PRN (22:05)
[2023-03-26 06:00] VITALS: BP 143/74; TEMP 97.6; O2SAT 97
[2023-03-26] MEDS: ACETAMINOPHEN 500 MG TAB PO SCH ×2 (06:14→12:11)
[2023-03-26 07:39] VITALS: BP 120/74; TEMP 98.8; O2SAT 98
[2023-03-26 08:21] VITALS: BP 120/74
[2023-03-26] MEDS: ENOXAPARIN 40MG/0.4ML SYRINGE (J1650 PER 10MG) SC SCH (08:21)
[2023-03-26] MEDS: MIRALAX *UNIT DOSE* 17GM PACKET PO SCH (08:21)
[2023-03-26] MEDS: DOCUSATE SODIUM 100MG CAPSULE PO SCH (08:21)
[2023-03-26] MEDS: SUCRALFATE 1 GM TAB PO SCH ×2 (08:22→12:11)
[2023-03-26] MEDS: PANTOPRAZOLE 40MG TAB (PROTONIX) PO SCH (08:22)
[2023-03-26] MEDS ORDERED: SUCR1TA PO (12:19)
[2023-03-26] MEDS ORDERED: PANT40TA29 PO (12:19)
[2023-03-26] MEDS ORDERED: AMLO1TAB25 PO (12:19)
[2023-03-27] MEDS ORDERED: QUET1TAB17 PO (09:50)
[2023-03-27] MEDS ORDERED: TRAZ-252 PO (09:50)
[2023-03-27] MEDS ORDERED: QUET200T2 PO (09:50)
[2023-03-27] MEDS ORDERED: OLAN5ZYD PO (09:50)
[2023-03-27] MEDS ORDERED: OLAN1TAB16 PO (09:50)
== END 2023-03-26 13:26 | DRG 812 ==
LOC: M ED 18:28 → M ED INP 22:53 → ENRESERV 03-23 06:00 → M ICU 03-23 06:41
PROVIDERS: ADMIT Internal Medicine; ATTEND Internal Medicine
PROC: 0DCA8ZZ Extirpation of Matter from Jejunum, Via Natural or Artificial Opening Endoscopic (ICD-10-PCS; principal; 2023-03-24 16:34)
DX: T43.292A Poisoning by other antidepressants, intentional self-harm, initial encounter (principal); F31.5 Bipolar disorder, current episode depressed, severe, with psychotic features; T18.3XXA Foreign body in small intestine, initial encounter; F20.9 Schizophrenia, unspecified; Z79.899 Other long term (current) drug therapy; Z88.6 Allergy status to analgesic agent; Z88.8 Allergy status to other drugs, medicaments and biological substances; F32.A Depression, unspecified; Z90.49 Acquired absence of other specified parts of digestive tract; K29.70 Gastritis, unspecified, without bleeding; Z98.0 Intestinal bypass and anastomosis status; R33.9 Retention of urine, unspecified; X83.8XXA Intentional self-harm by other specified means, initial encounter; Y92.230 Patient room in hospital as the place of occurrence of the external cause; Y99.8 Other external cause status

== ENCOUNTER 2023-03-26 12:47 | Inpatient (IN) | payer OTHER ==
[~2023-03-26] VITALS: Ht 177.8 cm; Wt 99.8 kg
[~2023-03-26 12:47] MED LIST changes: +AMLO1TAB25 PO; +DOCU100C16 PO; +DOK100TA2 PO; +MIRA3350 PO; +PANT20TA51 PO; +PANT40TA29 PO; +SENN-186 PO; +SUCR1TA PO
[2023-03-26] MEDS ORDERED: IBUPROFEN 400MG TAB PO PRN (13:05)
[2023-03-26] MEDS ORDERED: MOM 30ML SUSPENSION UDC PO PRN (13:05)
[2023-03-26] MEDS ORDERED: ACETAMINOPHEN TAB 650MG DOSE (2X325MG) PO PRN (13:05)
[2023-03-26] MEDS ORDERED: diphenhydrAMINE 25MG CAP PO PRN (13:05)
[2023-03-26] MEDS ORDERED: MAALOX 30 ML SUSP *UDC PO PRN (13:05)
[2023-03-26 14:50] VITALS: BP 136/72; TEMP 98.2
[2023-03-26] MEDS: OLANZapine ORAL DISINTEGRATING TAB 5MG PO PRN (15:43)
[2023-03-26] MEDS: traZODone 50 MG TAB PO PRN (19:58)
[2023-03-27] MEDS: traZODone 50 MG TAB PO PRN (02:08)
[2023-03-27] MEDS: OLANZapine ORAL DISINTEGRATING TAB 5MG PO PRN (02:13)
[2023-03-27 06:22] VITALS: BP 142/94; TEMP 98.6; O2SAT 99
[2023-03-27] MEDS ORDERED: OLANZapine 5 MG TAB PO SCH (09:00)
[2023-03-27] MEDS ORDERED: QUEtiapine FUMARATE 25 MG TAB PO SCH (09:00)
[2023-03-27] MEDS ORDERED: OLAN5ZYD PO (09:50)
[2023-03-27] MEDS ORDERED: QUET1TAB17 PO (09:50)
[2023-03-27] MEDS ORDERED: TRAZ-252 PO (09:50)
[2023-03-27] MEDS ORDERED: QUET200T2 PO (09:50)
[2023-03-27] MEDS ORDERED: OLAN1TAB16 PO (09:50)
[2023-03-27] MEDS ORDERED: QUEtiapine FUMARATE 200 MG TAB PO SCH (21:00)
== END 2023-03-27 10:32 | disposition home or self-care (01) | DRG 755 ==
LOC: M PSY 13:29
PROVIDERS: ADMIT Student in an Organized Health Care Education/Training Program; ATTEND Student in an Organized Health Care Education/Training Program
DX: F43.20 Adjustment disorder, unspecified (principal); I10 Essential (primary) hypertension; F29 Unspecified psychosis not due to a substance or known physiological condition; Z76.5 Malingerer [conscious simulation]; Z91.51 Personal history of suicidal behavior; K29.70 Gastritis, unspecified, without bleeding; Z91.52 Personal history of nonsuicidal self-harm

== ENCOUNTER 2023-05-02 17:14 | Emergency (ER) | payer OTHER ==
[~2023-05-02] VITALS: Ht 177.8 cm; Wt 99.3 kg
[~2023-05-02 17:14] MED LIST changes: +OLAN5ZYD PO; +QUET1TAB17 PO; +QUET200T2 PO; +TRAZ-252 PO
[2023-05-02] MEDS ORDERED: ACETAMINOPHEN 1000MG 100ML IV BAG IV ONE (20:30)
[2023-05-02 21:19] LABS: BASO # 0.1 10^3/uL (0.0-0.2); EOS # 0.1 10^3/uL (0.0-0.5); HEMATOCRIT 49.2 % (42.0-52.0); HEMOGLOBIN 16.6 g/dl (13.5-17.5); LYMPH # 1.6 10^3/uL (1.5-5.0); MEAN CORPUSCULAR HEMOGLOBIN 27.4 pg (27.0-33.0); MEAN CORPUSCULAR HGB CONC 33.7 g/dl (32.0-36.5); MEAN CORPUSCULAR VOLUME 81.3 fl (80.0-96.0); MONO # 0.6 10^3/uL (0.0-0.8); MONO % 6.3 % (2.0-8.0); NEUTROPHILS % 74.5 % (36.0-66.0); PLATELET COUNT, AUTOMATED 273 10^3/uL (150-450); RED BLOOD COUNT 6.05 10^6/uL (4.30-6.10); WHITE BLOOD COUNT 9.4 10^3/uL (4.0-10.0)
[2023-05-02 21:32] LABS: ERYTHROCYTE SEDIMENTATION RATE 38 mm/hr (0-15)
[2023-05-02] MEDS ORDERED: LIDOCAINE 4% CREAM 5GM (LMX4) TOP ONE (21:45)
[2023-05-02] MEDS ORDERED: ISOVUE-370 76% 100ML VIAL As Ordered ONE (21:49)
[2023-05-02 22:10] LABS: APPEARANCE, URINE CLOUDY (CLEAR); BACTERIA, URINE AUTO NEGATIVE (NEGATIVE); BILIRUBIN, URINE AUTO NEGATIVE (NEGATIVE); BLOOD, URINE BLOOD NEGATIVE (NEGATIVE); COLOR, URINE YELLOW (YELLOW); GLUCOSE, URINE (UA) AUTO NEGATIVE (NEGATIVE); KETONE, URINE AUTO NEGATIVE (NEGATIVE); LEUKOCYTE ESTERASE, URINE AUTO NEGATIVE (NEGATIVE); MUCUS, URINE SMALL (NEGATIVE); NITRITE, URINE AUTO NEGATIVE (NEGATIVE); PROTEIN, URINE AUTO NEGATIVE (NEGATIVE); RBC, URINE AUTO 4 /HPF (0-3); SPECIFIC GRAVITY URINE AUTO 1.017 (1.002-1.035); SQUAMOUS EPITHELIAL CELL UR AU 1 /HPF (0-6); UROBILINOGEN, URINE AUTO 0.2 mg/dL (0.0-2.0); WBC, URINE AUTO 0 /HPF (0-3)
[2023-05-02] MEDS ORDERED: LIDO1CRE2 TOP (23:34)
[2023-05-02 23:47] VITALS: BP 135/84; TEMP 98.7; O2SAT 96
== END 2023-05-02 23:52 | disposition home or self-care (01) ==
LOC: M ED 17:14
DX: R10.2 Pelvic and perineal pain (principal); N48.29 Other inflammatory disorders of penis; I10 Essential (primary) hypertension; J45.909 Unspecified asthma, uncomplicated; Z88.8 Allergy status to other drugs, medicaments and biological substances; Z88.6 Allergy status to analgesic agent; Z79.899 Other long term (current) drug therapy
CPT/HCPCS: 74177; 80047; 81001; 85025; 85652; 86140; 87088; 87186; 96374; 99284; J0131; Q9967

== ENCOUNTER 2023-05-08 19:05 | Emergency (ER) | payer OTHER ==
[~2023-05-08] VITALS: Ht 177.8 cm; Wt 100.0 kg
[~2023-05-08 19:05] MED LIST changes: +LIDO1CRE2 TOP
[2023-05-08 19:07] VITALS: TEMP 99.5
[2023-05-08 21:15] LABS: BASO # 0.1 10^3/uL (0.0-0.2); BASO % 1.2 % (0.0-1.0); EOS # 0.1 10^3/uL (0.0-0.5); EOS % 0.9 % (0.0-3.0); HEMATOCRIT 45.8 % (42.0-52.0); HEMOGLOBIN 15.6 g/dl (13.5-17.5); LYMPH # 1.4 10^3/uL (1.5-5.0); LYMPH % 16.1 % (24.0-44.0); MEAN CORPUSCULAR HEMOGLOBIN 27.7 pg (27.0-33.0); MEAN CORPUSCULAR HGB CONC 34.1 g/dl (32.0-36.5); MEAN CORPUSCULAR VOLUME 81.3 fl (80.0-96.0); MONO # 0.6 10^3/uL (0.0-0.8); MONO % 7.2 % (2.0-8.0); NEUTROPHILS # 6.6 10^3/uL (1.5-8.5); NEUTROPHILS % 74.4 % (36.0-66.0); PLATELET COUNT, AUTOMATED 244 10^3/uL (150-450); RED BLOOD COUNT 5.63 10^6/uL (4.30-6.10); WHITE BLOOD COUNT 8.9 10^3/uL (4.0-10.0)
[2023-05-08 21:34] LABS: CK-MB VALUE MASS < 1.0 NG/ML (<3.6)
[2023-05-08 21:35] LABS: BLOOD UREA NITROGEN 9 MG/DL (9-23); CALCIUM LEVEL 8.9 MG/DL (8.5-10.1); CARBON DIOXIDE LEVEL 24 MMOL/L (20-31); CHLORIDE LEVEL 107 MMOL/L (98-107); CREATININE FOR GFR 0.71 MG/DL (0.70-1.30); GLOMERULAR FILTRATION RATE > 60.0 (>60); GLUCOSE, FASTING 143 MG/DL (60-100); POTASSIUM SERUM 3.7 MMOL/L (3.5-5.1); SODIUM LEVEL 141 MMOL/L (136-145)
[2023-05-08 21:39] LABS: CPK CREATINE PHOSPHOKINASE 63 U/L (46-171); MB/CK RELATIVE INDEX 1.58 (< OR =4)
[2023-05-08 23:01] VITALS: BP 150/81
[2023-05-08 23:02] VITALS: O2SAT 97
== END 2023-05-08 23:40 | disposition home or self-care (01) ==
LOC: M ED 19:05
DX: R07.89 Other chest pain (principal); T83.098A Other mechanical complication of other urinary catheter, initial encounter; I10 Essential (primary) hypertension; K59.00 Constipation, unspecified; K21.9 Gastro-esophageal reflux disease without esophagitis; F41.9 Anxiety disorder, unspecified; Z88.8 Allergy status to other drugs, medicaments and biological substances; Z88.6 Allergy status to analgesic agent; F31.9 Bipolar disorder, unspecified; Z79.899 Other long term (current) drug therapy

== ENCOUNTER 2025-05-17 01:08 | Emergency (ER) | payer MEDICAID, SELFPAY ==
[~2025-05-17] VITALS: Ht 177.8 cm; Wt 115.0 kg
[~2025-05-17 01:08] MED LIST changes: -LIDO1CRE2 TOP; +LIDO4CRE12 TOP; -MIRA1POW3 PO; +MIRA33506 PO; -SENN-111 PO; +SENN-165 PO
[2025-05-17 03:09] VITALS: BP 146/82; TEMP 98.2; O2SAT 98
== END 2025-05-17 04:48 | disposition left against medical advice (07) ==
LOC: M ED 01:08
DX: Z53.21 Procedure and treatment not carried out due to patient leaving prior to being seen by health care provider (principal)

== ENCOUNTER 2025-06-25 16:27 | Emergency (ER) | payer MEDICAID ==
[~2025-06-25] VITALS: Ht 177.8 cm; Wt 115.2 kg
[2025-06-25 16:30] VITALS: BP 147/80; TEMP 98.6; O2SAT 98
[2025-06-25] MEDS ORDERED: VENTAER INH (18:59)
== END 2025-06-25 19:12 | disposition home or self-care (01) ==
LOC: M ED 16:27
DX: R05.9 Cough, unspecified (principal); B34.1 Enterovirus infection, unspecified; J45.909 Unspecified asthma, uncomplicated; F17.210 Nicotine dependence, cigarettes, uncomplicated; Z88.6 Allergy status to analgesic agent; Z88.8 Allergy status to other drugs, medicaments and biological substances; Z79.51 Long term (current) use of inhaled steroids; Z79.899 Other long term (current) drug therapy

== ENCOUNTER 2025-07-14 19:30 | Emergency (ER) | payer MEDICAID, OTHER ==
[~2025-07-14] VITALS: Ht 177.8 cm; Wt 109.5 kg
[~2025-07-14 19:30] MED LIST changes: +VENTAER INH
[2025-07-14 19:33] VITALS: TEMP 98.3
[2025-07-14 21:20] VITALS: BP 142/74; O2SAT 95
[2025-07-14] MEDS: NS (Normal Saline) 0.9% 1,000 ML IV ONE (21:23)
[2025-07-14] MEDS ORDERED: AMOX500C PO (21:26)
[2025-07-14 21:30] LABS: BASO # 0.1 10^3/uL (0.0-0.2); BASO % 0.6 % (0.0-1.0); EOS # 0.3 10^3/uL (0.0-0.5); EOS % 2.6 % (0.0-3.0); LYMPH # 2.1 10^3/uL (1.5-5.0); LYMPH % 20.5 % (24.0-44.0); MONO # 0.8 10^3/uL (0.0-0.8); MONO % 7.5 % (2.0-8.0); NEUTROPHILS # 7.1 10^3/uL (1.5-8.5); NEUTROPHILS % 68.5 % (36.0-66.0); PLATELET COUNT, AUTOMATED 260 10^3/uL (150-450)
[2025-07-14] MEDS ORDERED: ISOVUE-370 76% 100 ML VIAL As Ordered ONE (21:35)
[2025-07-14 21:55] LABS: CK-MB VALUE MASS 4.5 NG/ML (<3.6)
[2025-07-14 21:55] LABS: CALCIUM LEVEL 8.7 MG/DL (8.5-10.1); CARBON DIOXIDE LEVEL 26 MMOL/L (20-31); CHLORIDE LEVEL 107 MMOL/L (98-107); CREATININE FOR GFR 0.85 MG/DL (0.70-1.30); GLOMERULAR FILTRATION RATE > 90.0 (>60); POTASSIUM SERUM 3.8 MMOL/L (3.5-5.1); SODIUM LEVEL 142 MMOL/L (136-145)
[2025-07-14] MEDS: AMOXICILLIN 500 MG CAP PO ONE (21:55)
[2025-07-14 22:00] LABS: CPK CREATINE PHOSPHOKINASE 536.0 U/L (46-171); MB/CK RELATIVE INDEX 0.83 (< OR =4)
== END 2025-07-14 22:05 | disposition left against medical advice (07) ==
LOC: M ED 19:30
DX: J02.0 Streptococcal pharyngitis (principal); I10 Essential (primary) hypertension; Z88.6 Allergy status to analgesic agent; Z88.8 Allergy status to other drugs, medicaments and biological substances; Z79.51 Long term (current) use of inhaled steroids; Z79.2 Long term (current) use of antibiotics; Z79.899 Other long term (current) drug therapy; Z53.9 Procedure and treatment not carried out, unspecified reason
CPT/HCPCS: 36415; 71046; 74177; 80047; 80048; 82550; 82553; 84484; 85025; 87486; 87581; 87633; 87798; 87880; 96360; 99284; Q9967